=== PATIENT | male | born 1955 | race Caucasian/White ===

== ENCOUNTER 2019-06-01 12:36 | Inpatient (IN) | payer OTHER ==
[~2019-06-01] VITALS: Ht 177.8 cm; Wt 87.5 kg
[~2019-06-01 12:36] MED LIST: AMLO5 PO; CENTRUM MEN'S1 EACH PO; CIPR500 PO; DOXY100 PO; GEMF600 PO; HYDACE10B PO; HYDR-86; IBUP600 PO; LORA10 PO; OXYACE5T PO; SILSUL1TC TOP
[2019-06-01] MEDS ORDERED: POTA10T PO (12:43)
[2019-06-01] MEDS ORDERED: LISI20 PO (12:43)
[2019-06-01] MEDS ORDERED: FUROSEMIDE20 MG PO (12:43)
[2019-06-01] MEDS ORDERED: METO50ER PO (12:44)
[2019-06-01 13:20] LABS: BASOPHILS ABSOLUTE AUTO 0.04 K/mm3 (0.00-0.23); BASOPHILS PERCENT AUTO 0 % (0-2); EOSINOPHILS ABSOLUTE AUTO 0.05 K/mm3 (0.00-0.68); EOSINOPHILS PERCENT AUTO 1 % (0-6); Hematocrit 47.3 % (37.0-53.0); Hemoglobin 16.5 g/dL (13.5-17.5); IMMATURE GRAN ABSOLUTE AUTO 0.02 K/mm3 (0.00-0.10); IMMATURE GRAN PERCENT AUTO 0 % (0-1); LYMPHOCYTES ABSOLUTE AUTO 1.47 K/mm3 (0.84-5.20); LYMPHOCYTES PERCENT AUTO 16 % (21-46); MONOCYTES PERCENT AUTO 6 % (4-13); Mean Corpuscular HGB 30.1 pg (26.0-34.0); Mean Corpuscular HGB Conc 34.9 g/dL (31.5-36.5); Mean Corpuscular Volume 86 fL (80-100); Mean Platelet Volume 10.8 fL (9.1-12.4); NEUTROPHILS ABSOLUTE AUTO 7.19 K/mm3 (1.96-9.15); NEUTROPHILS PERCENT AUTO 77 % (41-73); Platelet Count 254 K/mm3 (150-400); RDW Standard Deviation 40.3 fL (35.1-46.3); Red Blood Cell Count 5.48 M/mm3 (4.30-5.90); White Blood Cell Count 9.37 K/mm3 (4.00-11.30)
[2019-06-01 13:31] LABS: Alanine Aminotransfer (ALT/SGP 23 U/L (12-78); Albumin/Globulin Ratio 1.2 (0.8-1.8); Alk Phos 60 U/L (50-136); Anion Gap 7 mmol/L (6-16); Aspartate Aminotrans (AST/SGOT 14 U/L (12-37); Bilirubin, Total 0.7 mg/dL (0.1-1.0); Blood Urea Nitrogen 10 mg/dL (8-24); Bun/Creatinine Ratio 10.7 (12.0-20.0); CO2, Blood 31 mmol/L (21-32); Calcium, Blood 8.7 mg/dL (8.5-10.1); Chloride, Blood 106 mmol/L (98-108); Creatinine, Blood 0.93 mg/dL (0.60-1.20); Globulin, Blood 3.2 g/dL (2.2-4.0); Glomerular Filtration Rate >60 (60-); Glucose, Blood 118 mg/dL (70-99); Potassium, Blood 2.9 mmol/L (3.5-5.5); Sodium, Blood 144 mmol/L (136-145); Total Protein, Blood 7.2 g/dL (6.4-8.2)
--- NOTE | 2019-06-01 21:40 | NUR ---
TRANSFER RECEIVED FROM ROOM 359 VIA BED. PT IS AWAKE AND ALERT, BUT IS AGITATED AND ORIENTED TO SELF ONLY. MOVING ALL EXTREMITIES AND IS RESTLESS. DOESN'T FOLLOW COMMANDS. MAKES EYE CONTACT WITH STAFF AND FAMILY. FORTINO, 4MM. BILATERAL SOFT WRIST RESTRAINTS AND TEOFILO VEST IN PLACE. EXPRESSIVE APHASIA/WORD SALAD NOTED AT TIMES. CURSING AT STAFF. UNABLE TO OBTAIN BP D/T PT CONSTANTLY MOVING ARMS AND LEGS. MONITOR SHOWS NSR WITH OCCASIONAL PVCs, RATE 70s. AFEBRILE. RA SATS 96%. RESPIRATIONS EVEN AND UNLABORED AT THIS TIME. PT CLUTCHING HEAD WITH BOTH HANDS WHEN RESTRAINTS OFF. ANSWERS "YES" WHEN ASKED IF HE IS HURTING. C/O NAUSEA. FAMILY AT BEDSIDE.
--- NOTE | 2019-06-01 22:20 | NUR ---
AGITATION/HYPERTENSIVE PT CONTINUES WITH INCREASED AGITATION AND RESTLESSNESS. CONSTANTLY MOVING SELF IN BED. BP 208/97. MEDICATED WITH ATIVAN 1MG IV FOR AGITATION AND HYDRALAZINE 10MG IV FOR HYPERTENSION AT THIS TIME.
--- NOTE | 2019-06-01 22:40 | NUR ---
CALL TO MD DR. GASTELUM CALLED FOR UPDATE AND FOR PAIN MEDICATION NEEDS. PT CONTINUES TO C/O SEVERE HEADACHE AND CONTINUES TO BE HYPERTENSIVE AND AGITATED. NEW ORDERS RECEIVED AT THIS TIME.
[2019-06-01 23:11] LABS: Source, Urine Catheter
[2019-06-01 23:14] LABS: Bilirubin, Urine Neg (Neg); Blood, Urine Neg (Neg); Glucose Qualitative, Urine Neg (Neg); Ketones, Urine 3+ (Neg); Leukocyte Esterase, Urine Neg (Neg); Nitrite, Urine Neg (Neg); Protein, Urine 2+ (Neg); Urobilinogen, Urine NORM (Normal)
[2019-06-01 23:21] LABS: Appearance, Urine Hazy (Clear); Color, Urine Yellow (P-Yellow)
[2019-06-01 23:22] LABS: Amorphous Mod (0-Heavy); Bacteria Not Seen /hpf; Mucus Light (0-Heavy); Red Blood Cells, Urine Not Seen /hpf (0-2); Squamous Epithelial Cells Rare /hpf (Few); White Blood Cells, Urine Not Seen /hpf (0-5)
--- NOTE | 2019-06-02 00:05 | NUR ---
AGITATION/CALL TO MD DR. GASTELUM NOTIFIED OF CONTINUED AGITATION AND HYPERTENSION DESPITE ADMINISTRATION OF ORDERED MEDS. PT CONTINUES TO THRASH AROUND IN BED AND PULL ON RESTRAINTS. CURSING AT STAFF AND YELLING OUT FREQUENTLY. NEW ORDERS RECEIVED FOR HALDOL.
--- NOTE | 2019-06-02 00:20 | NUR ---
PT ARRIVED FROM ER TO RM 359 IN WHEELCHAIR. PT HAD VOMITED ON HIMSELF. PT WAS TRANSFERED TO BED AND CHANGED INTO GOWN. PT WAS CONFUSED AND NOT FOLLOWING DIRECTIONS. PT TRIED TO GET OUT OF BED REPEATEDLY. PT WAS NOTED TO BE UNSTEADY DURING TRANSFER TO BED. PT TRIED TO PULL OUT IV AND WAS PLACED IN SOFT WRIST RESTRAINTS. A TEOFILO VEST WAS APPLIED TO KEEP PT IN BED. PT AND SON WERE PRESENT IN ROOM. STATED PT HAS NEVER HAD ISSUE WITH BEING CONFUSED. STATES PT IS NORMALY CAOX4. STATES THAT IN THE PAST PT HAD NEGITIVE RESPONSE TO CONTRAST DYES. WAS UNABLE TO EXPLAIN TYPE OF RESPONSE. DR. WAKEFIELD CALLED AND TRANSFER ORDER WAS MADE FOR PT TO GO TO ICU.
--- NOTE | 2019-06-02 00:25 | NUR ---
AGITATION/RESTRAINTS PT IS THRASHING SIDE TO SIDE IN BED, BANGING LEGS AGAINST BEDRAIL, AND KICKING THEM UP IN THE AIR. MEDICATED WITH ATIVAN 1MG IV. BILATERAL LEG RESTRAINTS ADDED AT THIS TIME. PT STATES HE NEEDS TO "GO TO THE BATHROOM." ATTEMPTED TO ASSIST PT WITH URINAL, BUT PT IS UNABLE TO UNDERSTAND PROCESS. CONTINUES TO CRY OUT THAT HE NEEDS TO URINATE. CLARK CATHETER PLACED AT THIS TIME WITH IMMEDIATE RETURN OF APPROXIMATELY 400CC HAZY YELLOW URINE.
--- NOTE | 2019-06-02 00:46 | NUR ---
AGITATION/CALL TO MD DR. GASTELUM NOTIFIED AT 0035 OF CONTINUED AND INCREASING AGITATION DESPITE PREVIOUS MEDICATIONS. NEW ORDER RECEIVED FOR PRECEDEX. PRECEDEX STARTED @ 0.7MCG/KG/HR AT THIS TIME.
--- NOTE | 2019-06-02 01:30 | NUR ---
CPAP PT SEDATED WITH PRECEDEX @ 0.7MCG/KG/HR. PERIODS OF SLEEP APNEA NOTED (PT HAS HISTORY OF TAYE AND WEARS CPAP AT HOME). CPAP ON AT THIS TIME.
--- NOTE | 2019-06-02 03:45 | NUR ---
PRECEDEX OFF MONITOR SHOWS BRADYCARDIA, RATE 50s. SBP 100s. PRECEDEX OFF AT THIS TIME. PT IS SLEEPING. REMAINS IN BILATERAL SOFT RESTRAINTS X 4 EXTREMITIES AND TEOFILO VEST.
[2019-06-02 03:54] LABS: Anion Gap 5 mmol/L (6-16); Blood Urea Nitrogen 10 mg/dL (8-24); Bun/Creatinine Ratio 9.8 (12.0-20.0); CO2, Blood 33 mmol/L (21-32); Calcium, Blood 8.2 mg/dL (8.5-10.1); Chloride, Blood 107 mmol/L (98-108); Creatinine, Blood 1.02 mg/dL (0.60-1.20); Glomerular Filtration Rate >60 (60-); Glucose, Blood 140 mg/dL (70-99); Potassium, Blood 3.1 mmol/L (3.5-5.5); Sodium, Blood 145 mmol/L (136-145)
--- NOTE | 2019-06-02 05:40 | NUR ---
AGITATION PT WITH SEVERE AGITATION. ATTEMPTING TO SIT UP AND PULLING AGAINST RESTRAINTS. THRASHING VIOLENTLY IN BED. C/O HEADACHE. MEDICATED WITH MS 2MG IV. PRECEDEX RESTARTED @ 0.7MCG/KG/HR AT THIS TIME.
--- NOTE | 2019-06-02 05:53 | NUR ---
AGITATION PT WITH CONTINUED SEVERE AGITATION. REQUIRING TWO RNs TO KEEP PT FROM HURTING SELF BY THRASHING. RESTRAINTS CONTINUE. PRECEDEX INCREASED TO 1MCG/KG/HR AND MEDICATED WITH ATIVAN 1MG IV AT THIS TIME.
--- NOTE | 2019-06-02 06:00 | NUR ---
SEVERE AGITATION PT NOW REQUIRING THREE RNs TO PREVENT HIM FROM HURTING HIMSELF BY FLAILING/THRASHING IN THE BED. TATs PLACED TO ALL FOUR EXTREMITES AT THIS TIME. NOT FOLLOWING ANY COMMANDS. CURSING AND CRYING. PRECEDEX CONTINUES @ 1MCG/KG/HR.
--- NOTE | 2019-06-02 06:10 | NUR ---
PRECEDEX PT WITH DECREASE IN AGITATION AT THIS TIME. CONTINUES WITH SHORT PERIODS OF AGITATION, BUT APPEARS TO CALM EASIER. TUFF CUFFS REMAIN ON. PRECEDEX NOW @ 0.5MCG/KG/HR. WILL REPORT TO DAY SHIFT RN WHEN AVAILABLE.
[2019-06-02 06:30] LABS: U Amphetamine Screen Not Detected; U Barbituate Screen Not Detected; U Benzodiazapine Screen DETECTED; U Buprenorphine Screen Not Detected; U Cannabinoids Screen Not Detected; U Cocaine Screen Not Detected; U Methadone Screen Not Detected; U Methamphetamine Screen Not Detected; U Opiates Screen Not Detected; U Oxycodone Screen Not Detected; U Phencyclidine Screen Not Detected; U Propoxyphene Screen Not Detected
--- NOTE | 2019-06-02 07:20 | NUR ---
ASSUMED CARE OF PATIENT; SEE ASSESSMENT CHARTING FOR DETAILS. PATIENT AGITATED AND RESTLESS; FLAILING EXTREMITITES AND RAISING HEAD OFF OF BED; GRUNTING BUT NO ACTUAL WORDS SPOKEN; EYES CLOSED. DOES NOT RESPOND TO VERBAL STIMULI; DOES RESPOND TO PAIN. EYES OPEN SLIGHTLY; PUPILS 2MM AND EQUAL/REACTIVE; NO DRIFT ETC NOTED BUT DOES NOT APPEAR TO FOCUS, ETC. WILL NOT CHIPPER OPERATOR HANDS, ETC BUT DOES MOVE ALL EXTREM. AND TRIES TO PULL OUT OF RESTRAINTS. ON LOCKED 4 POINT RESTRAINTS D/T PATIENT VERY STRONG AND WAS RIPPING OFF SOFT RESTRAINTS; ALSO ON TEOFILO WAIST/CHEST RESTRAINT D/T TRYING TO RAISE UP OOB. MONITOR WITH SB TO NSR WITH OCC. ECTOPIC. PRECEDEX DRIP UP TO 0.7MCG/KG/HR FROM 0.5MCG/KG/HR; HR IN 60'S. LUNGS CLEAR. OXYGENATION LOW 90'S WHEN RESTLESS AND DROPS DOWN TO MID 80'S TO LOW 90'S WHEN FALLS ASLEEP. CPAP MACHINE PLACED/ HAS BLEED-IN OXYGEN. CLARK CATH. TO GRAVITY; INSERTED BY NIGHTSHIFT D/T PATIENT HAVING SEVERE DIFF. VOIDING.
--- NOTE | 2019-06-02 08:51 | NUR ---
DR. GASTELUM CAME IN TO EVAL. PATIENT; SPOKE WITH SPOUSE. PLANS TO REPEAT CT OF HEAD AND PUT IN NEUROLOGY CONSULT FOR DR. SANON. IVF'S TO BE STARTED AND K+ RIDER TO BE ORDERED. ALSO, TO START IV MEDS. FOR HTN D/T PATIENT UNSAFE OR ALERT ENOUGH TO TAKE PO MEDS.
--- NOTE | 2019-06-02 09:15 | NUR ---
PRECEDEX DRIP REDUCED TO 0.5MCG/KG/HR; HR LOW 50'S.
--- NOTE | 2019-06-02 10:00 | NUR ---
PRECEDEX DRIP REDUCED TO 0.4MCG/KG/MIN; HR 53-56/MIN; PATIENT SLEEPING; TURNED ON R SIDE; CPAP MACHINE IN PLACE. PATIENTS' SPOUSE AND SON AT BEDSIDE.
--- NOTE | 2019-06-02 10:30 | NUR ---
RN T/C TO DR. SANON TO INFORM HIM THAT UTILIZATION REVIEW STATES PATIENT IS QUALIFIED FOR INPATIENT STATUS. DR. SANON TO CONSULT THIS AFTERNOON BETWEEN 3 TO 4PM; WILL CALL RN 30/MIN PRIOR TO ARRIVAL SO RN CAN TURN OFF SEDATIVE MEDS. RN INFORMED PATIENTS' FAMILY RE: NEUROLOGY CONSULT/VISIT.
--- NOTE | 2019-06-02 13:40 | NUR ---
T/C FROM DR. SANON; D/T POWER OUTAGE HE WILL ARRIVE SOONER TO EVAL. PATIENT; REQUESTED RN TURN OFF SEDATION AT THIS TIME AND HE WILL ARRIVE IN ABOUT 10/MIN.
--- NOTE | 2019-06-02 16:15 | NUR ---
DR. SANON ARRIVED; REQUESTS RN D/C LOCKED EXTREM. RESTRAINTS; PATIENT MORE ALERT AND CALMS MUCH EASIER. LUNGS REMAIN CLEAR. OXYGEN AT 2L/MIN VIA NC; CPAP OFF SINCE LATE AM. PRECEDEX DRIP REMAINS OFF AND PATIENT HAS BEEN SLEEPING, QUIET OR CALMED BY FAMILY; REMAINS PARTIALLY CONFUSED AND SHORT-TERM MEMORY OFF.
--- NOTE | 2019-06-02 18:00 | NUR ---
SUMMARY: TEOFILO WAIST RESTRAINT IN PLACE; PATIENT DRIFTS OFF TO SLEEP WHEN NOT DISTURBED. SBP 207; GIVEN APRESOLINE IV AND NORCO 1 TAB TO HELP LOWER BP (AM MEDS HELD TODAY D/T PATIENT TOO STUPEROUS/CONFUSED TO SWALLOW SAFELY). SPOUSE FED PATIENT DINNER AND PATIENT SWALLOWING WELL. ABLE TO SWALLOW NORCO TAB WITHOUT NEED OF APPLESAUCE, ETC; SWALLOWED WITH WATER TO FOLLOW; NO COUGHING, CHOKING, ETC NOTED. PRECEDEX DRIP REMAINS OFF; NS INFUSING AT 100/HR. WILL REPORT TO ONCOMING RN.
--- NOTE | 2019-06-02 20:24 | NUR ---
ASSUMED CARE OF PT, REPORT RCV'D FROM SUKHWINDER REGALADO. PT ALERT TO SELF BUT FAILS TO VERBALLY RESPOND TO QUESTIONS. PT RESPONDS TO PAIN BY WITHDRAWING AND SAYING "OW". PRECEDEX GTT ON STANDBY. NS @100 ML/HR PLACED ON STANDBY BOTH IV'S ARE INFILTRATED DUE TO PT THRASHING. PT REPOSITIONED ONTO LEFT SIDE PER FAMILY REQUEST. TEOFILO VEST ON AND SECURE. CLARK PATENT AND DRAINING. 2L NC WITH SATS IN THE MID 90'S. LUNG SOUNDS CLEAR. SBP 220/109, TREATED WITH HYDRALAZINE AND PO METOPROLOL. PT ABLE TO SWALLOW PO MEDS WITH NO DIFFICULTY. SEE FULL SHIFT ASSESSMENT.
--- NOTE | 2019-06-02 22:00 | NUR ---
PT ANTSY AND THRASHING IN BED, PULLING LEADS OFF AND CORDS. PT UNABLE TO ANSWER MOST QUESTIONS BUT WILL OCCASIONALLY YELL OUT "OW" AND "I NEED OUT". PT UNABLE TO EXPRESS WHERE HE IS HAVING PAIN. PRECEDEX 0.05 MCG/KG/HR STARTED. PT'S FAMILY AT BEDSIDE AND UPDATED.
[2019-06-03 04:00] LABS: Anion Gap 3 mmol/L (6-16); Blood Urea Nitrogen 15 mg/dL (8-24); Bun/Creatinine Ratio 15.7 (12.0-20.0); CHOL/HDL RATIO 4.1; CO2, Blood 31 mmol/L (21-32); Chloride, Blood 110 mmol/L (98-108); Cholesterol 131 mg/dL (50-200); Creatinine, Blood 0.95 mg/dL (0.60-1.20); Glomerular Filtration Rate >60 (60-); Glucose, Blood 114 mg/dL (70-99); HDL Cholesterol 32 mg/dL (>39); LDL/HDL RATIO 2.4; Low Density Lipoprotein Chol 76 mg/dL (0-110); Potassium, Blood 3.2 mmol/L (3.5-5.5); Sodium, Blood 144 mmol/L (136-145); Triglycerides 113 mg/dL (30-160); Very Low Density Lipoprot Chol 22 mg/dL (6-32)
--- NOTE | 2019-06-03 06:12 | NUR ---
SHIFT SUMMARY PT CONTINUES TO BE CONFUSED AND PULLING AT LINES, CLARK, CARDIAC LEADS, AND TAKING HIS CPAP OFF. PT SEEMED MORE CONFUSED AND RESTLESS FOLLOWING DOSE OF ATIVAN. PT HAD ONE MOMENT OF "CLARITY" WHERE HE SEEMED LESS CONFUSED AND WAS ABLE TO FOLLOW DIRECTION WHILE ASSISTING WITH LINEN CHANGE. PT STARTED ON PRECEDEX GTT AT 2300 AND PT BECAME LESS ANXIOUS AND RESTLESS. SBP BELOW 160 SINCE 2200. PRECEDEX GTT PLACED ON STANDBY AT 0530 D/T BRADYCARDIA WITH HR IN THE LOW 40'S. 600 ML DARK YELLOW URINARY OUTPUT. TMAX 99.0. WILL REPORT TO DAYSHIFT NURSE.
--- NOTE | 2019-06-03 08:37 | NUR ---
PT ALERT AND ORIENTED THIS MORNING UPON WAKING. HE IS STILL A LITTLE SLOW TO RESPOND WHEN ASKED MORE COMPLICATED QUESTIONS, BUT STILL ANSWERS APPROPRIATELY. HE REMEMBERS EVENTS LEADING UP TO HIS STAY AND PARTS OF THE STAY, BUT DOESN'T REMEMBER HIS CONFUSION. HE TOOK PILLS WITHOUT DIFFICULTY, ATE BREAKFAST HIMSELF. CLARK REMOVED WITHOUT DIFFICULTY. CONTINUING TO MONITOR.
--- NOTE | 2019-06-03 15:58 | NUR ---
SHIFT SUMMARY: PT HAS BEEN ALERT AND ORIENTED THROUGHOUT THE SHIFT. IN THE MORNING HIS THINKING WAS STILL SLOW WITH COMPLICATED QUESTIONS, BUT THIS EVENING HE IS ANSWERING QUICKLY AND APPROPRIATELY TO ALL QUESTIONS. LUNGS REMAINS CLEAR, RA. HEART RATE REMAINS REGULAR, BP STILL ELEVATED IN THE 160-170S, HYDRALAZINE GIVEN. PT COMPLAINS OF ONGOING HEADACHES, PAIN MEDICATION GIVEN THROUGHOUT THE DAY. VOIDING WITHOUT DIFFICULTY. PT HAS BEEN UP TO CHAIR. STATES HE FEELS STEADY ON HIS FEET. NO OTHER COMPLAINTS AT THIS TIME.
--- NOTE | 2019-06-03 17:40 | NUR ---
PT TRANSFERRED TOR 309. REPORT GIVEN TO SUKHWINDER MARINELLI. PT TRANSPORTED VIA TO NEW ROOM. PT'S WITH PT AT TIME OF TRANSPORT.
--- NOTE | 2019-06-03 18:35 | NUR ---
SHIFT SUMMARY PATIENT ARRIVED TO THE UNIT AT 1800. HE IS CURRENTLY ON A RETAIL GREETER AND HAS BEEN HYPERTENSIVE. HE HAS BEEN GIVEN A DOSE OF IV METOPROLOL AND A DOSE OF TYLENOL TO RELIEVE THE HEADACHE.
--- NOTE | 2019-06-04 08:30 | NUR ---
PT PLEASANT COOP A/O. STATES PAIN IN HEADACHE ONLY. IN ROOM. TRIES TO TALK FOR HIM. H/R REG NO MURMER NOTED. BP 185/85 RECHECK AT 197/91. PER TELE: NSR TO ASHU 56-60'S. MED PER EMAR. LUNGS CLEAR, RESP EASY, UNLABORED. ON R/A. BT X4 LAST BM 3 DAYS, BUT NOT EATING HARDLY ANYTHING AND STATES THROWING UP. VOIDS PER BATHROOM. INDEPENDNT IN ROON. BED IN LOW POSITION, CALL LITE IN REACH, CALLS APPROP. DR IN ROOM. DISCUSSED KEEP TELE. D/C NEUROCHECKS. AND HEADACHE.
[2019-06-04 09:54] LABS: Anion Gap 4 mmol/L (6-16); Blood Urea Nitrogen 11 mg/dL (8-24); Bun/Creatinine Ratio 13.3 (12.0-20.0); CO2, Blood 31 mmol/L (21-32); Calcium, Blood 8.5 mg/dL (8.5-10.1); Chloride, Blood 108 mmol/L (98-108); Creatinine, Blood 0.83 mg/dL (0.60-1.20); Glomerular Filtration Rate >60 (60-); Glucose, Blood 118 mg/dL (70-99); Potassium, Blood 3.3 mmol/L (3.5-5.5); Sodium, Blood 143 mmol/L (136-145)
--- NOTE | 2019-06-04 11:42 | NUR ---
0900BP HIGH. ADMIN MEDS. FOLLOW WITH RECHECK AFTER MEDS. 1000 DR ADDED NEW MEDS FOR BP. 1100 RECHECK SHOWS 197/91 P 54
--- NOTE | 2019-06-04 11:43 | NUR ---
[facility]. NEURO CHECKS D/C
--- NOTE | 2019-06-04 14:25 | NUR ---
PT STATES HEADACHE FINALLY GONE.
--- NOTE | 2019-06-04 14:47 | NUR ---
PT WITH GOING OUT TO SIT IN SUN FOR A FEW MIN. PT HAPPY TO GO.
--- NOTE | 2019-06-04 17:06 | NUR ---
PT PLEASANT TODAY. AND SON IN TO VISIT TODAY. HEADACHE IMPROVED SINCE NEW MED. BP ALSO DOWN THIS AFT. DR ADVISED IN [place] AND COMFORTABLE IN MID 160'S. PT RESTING IN BED AT THIS TIME. WATCHING TV. BED IN LOW POSITION CALL ANSHU ALEGRE, CALLS APPROP
--- NOTE | 2019-06-04 17:06 | NUR ---
PT ABLE TO GO OUTSIDE WITH FAMILY. STATES DID WELL. FEELS NICE TO GET OUT AGAIN.
--- NOTE | 2019-06-05 06:24 | NUR ---
SHIFT SUMMARY PT IS A 64 Y/O MALE, ADMITTED FOR HYPERTENSIVE URGENCY. HE IS A&O X 3, AND INDEPENDENT IN THE ROOM. HIS BP WAS ELEVATED DURING THE NIGHT IN THE 180-190S SYSTOLICALLY, BUT BOTH TIMES CAME DOWN TO 150-160S ON RECHECK WITHOUT PRN MEDICATION INTERVENTION. ALL OTHER VITALS STABLE. HE WAS MEDICATED ONCE WITH PRN FIORINAL FOR A HEADACHE. NO OTHER COMPLAINTS OF PAIN, NAUSEA OR SOB. PT SLEPT OFF AND ON DURING THE NIGHT. NO OTHER ACUTE CHANGES IN PT CONDITION NOTED. WILL CONTINUE TO MONITOR AND TREAT PER EMAR UNTIL HAND OFF TO DAY SHIFT.
[2019-06-05] MEDS ORDERED: AMLO10 PO (17:02)
[2019-06-05] MEDS ORDERED: ATOR20 PO (17:04)
[2019-06-05] MEDS ORDERED: ASPI81CH PO (17:04)
[2019-06-05] MEDS ORDERED: CLON.1 PO (17:05)
[2019-06-05] MEDS ORDERED: POTCHL20ER PO (17:07)
--- NOTE | 2019-06-05 17:45 | NUR ---
REVIEW D'C WITH PATIENT AND SPOUSE. AWARE TO ANTHROPOLOGY FACULTY MEMBER RX AT [facility]. ANSWER ALL QUESTIONS. AWARE TO CALL FOR APPT. AWARE CAN RETURN TO E.R. IF ANY PROBLEMS. EATTING DINNER THEN WILL HAVE W/C RIDE DOWN TO CAR.
== END 2019-06-05 17:59 | disposition home or self-care (01) | DRG 78 ==
LOC: ER 12:36 → ERHOLD 17:12 → MEDS 17:12 → ICUE 17:12 → MEDS 19:46 → ICUE 21:26 → MEDS 06-03 17:31
PROVIDERS: Emergency Medicine; Family Medicine; ADMIT Hospitalist
DX: I67.4 Hypertensive encephalopathy (principal); G45.9 Transient cerebral ischemic attack, unspecified; I16.0 Hypertensive urgency; E78.00 Pure hypercholesterolemia, unspecified; Z87.891 Personal history of nicotine dependence; G47.33 Obstructive sleep apnea (adult) (pediatric); E78.5 Hyperlipidemia, unspecified; I10 Essential (primary) hypertension; E87.6 Hypokalemia; F41.9 Anxiety disorder, unspecified; R45.1 Restlessness and agitation; E11.9 Type 2 diabetes mellitus without complications; R20.0 Anesthesia of skin; Z79.82 Long term (current) use of aspirin
CPT/HCPCS: 36415; 51703; 70450; 70551; 80048; 80053; 80061; 81001; 82947; 85025; 93005; 93010; 93975; 94660; 94762; 96374; 96375; 96376; 99285-25; A9270; A9270-GY; G0378; J0360; J1630; J2060; J2270; J2405; J3480; J7030

== ENCOUNTER → 2019-06-08 | Outpatient (CLI) | payer OTHER ==
[~2019-06-08] MED LIST changes: +AMLO10 PO; +ASPI81CH PO; +ATOR20 PO; +CLON.1 PO; +FUROSEMIDE20 MG PO; +LISI20 PO; +METO50ER PO; +POTA10T PO; +POTCHL20ER PO
[2019-06-12 18:06] LABS: DOPAMINE, URINE 78 ug/L (Undefined)
[2019-06-12 22:06] LABS: METANEPHRINE, UR 39 ug/L (Undefined)
[2019-06-14 04:07] LABS: CREATININE, URINE 48.3 mg/dL (Not Estab.)
== END | disposition home or self-care (01) ==
LOC: LAB SHORT 05:36 → LAB 05:36 → LAB FUT 06-06 13:30
PROVIDERS: Hospitalist
DX: I16.0 Hypertensive urgency (principal)
CPT/HCPCS: 81050; 82384; 82570; 83835; 84585

== ENCOUNTER 2021-02-27 16:40 | Day surgery (SDC) | payer OTHER, MEDICARE | END 2021-02-27 22:40 | disposition home or self-care (01) | LOC: US 16:40 | DX: J90 Pleural effusion, not elsewhere classified (principal) | CPT/HCPCS: 32555; 71045 ==

== ENCOUNTER 2021-05-06 13:34 | Inpatient (IN) | payer OTHER, MEDICARE ==
[~2021-05-06] VITALS: Ht 177.8 cm; Wt 82.5 kg
[~2021-05-06 13:34] MED LIST changes: +ACET325 PO; -ATOR20 PO; +ATOR80 PO; +AZIT250 PO; +BENZONATATE100 MG PO; +DILT60 PO; +HYDROCHLOROTHIA25 MG PO; +Mucinex600 MG PO; +Norco 7.5-3251 EACH PO; +ONDA4ODT MM; +PANT20 PO; +SPIRONOLACTONE50 MG PO; +VISBIOME 112.51 EACH PO; +XARELTO15 M1 PO
[2021-05-06 14:21] LABS: Hematocrit 20.5 % (37.0-53.0); Hemoglobin 6.4 g/dL (13.5-17.5); Mean Corpuscular HGB 27.9 pg (26.0-34.0); Mean Corpuscular HGB Conc 31.2 g/dL (31.5-36.5); Mean Corpuscular Volume 90 fL (80-100); Mean Platelet Volume 10.2 fL (9.1-12.4); Platelet Count 353 K/mm3 (150-400); RDW Coefficient Variation 18.9 % (11.7-14.2); RDW Standard Deviation 59.9 fL (35.1-46.3); Red Blood Cell Count 2.29 M/mm3 (4.30-5.90)
[2021-05-06 14:36] LABS: Alanine Aminotransfer (ALT/SGP 41 U/L (12-78); Albumin, Blood 2.6 g/dL (3.4-5.0); Albumin/Globulin Ratio 0.6 (0.8-1.8); Alk Phos 166 U/L (50-136); Anion Gap 5 mmol/L (6-16); Aspartate Aminotrans (AST/SGOT 12 U/L (12-37); Bilirubin, Total 0.2 mg/dL (0.1-1.0); Blood Urea Nitrogen 13 mg/dL (8-24); Bun/Creatinine Ratio 15.6 (12.0-20.0); CO2, Blood 28 mmol/L (21-32); Calcium, Blood 8.2 mg/dL (8.5-10.1); Chloride, Blood 105 mmol/L (98-108); Creatinine, Blood 0.83 mg/dL (0.60-1.20); Globulin, Blood 4.3 g/dL (2.2-4.0); Glomerular Filtration Rate >60 (60-); Glucose, Blood 125 mg/dL (70-99); Potassium, Blood 3.5 mmol/L (3.5-5.5); Sodium, Blood 138 mmol/L (136-145); Total Protein, Blood 6.9 g/dL (6.4-8.2)
[2021-05-06 14:45] LABS: BAND PERCENT MAN 21 % (0-8); BASOPHILS ABSOLUTE MAN 0.19 K/mm3 (0.00-0.23); BASOPHILS PERCENT MAN 1 % (0-2); EOSINOPHILS PERCENT MAN 0 % (0-6); LYMPHOCYTES ABSOLUTE MAN 2.17 K/mm3 (0.84-5.20); LYMPHOCYTES PERCENT MAN 11 % (21-46); METAMYELOCYTE ABSOLUTE MAN 0.99 K/mm3 (0.00-0.00); METAMYELOCYTE PERCENT MAN 5 % (0-0); MONOCYTES PERCENT MAN 0 % (4-13); NEUTROPHILS ABSOLUTE MAN 16.43 K/mm3 (1.96-9.15); SEG NEUTROPHILS PERCENT MAN 62 % (41-73); TOTAL CELLS COUNTED 100
[2021-05-06] MEDS ORDERED: LISI5 PO (16:22)
[2021-05-06] MEDS ORDERED: DILT60 PO (16:22)
[2021-05-06] MEDS ORDERED: XARELTO20 M1 PO (16:22)
[2021-05-06] MEDS ORDERED: AMLODIPINE BESY10 MG PO (16:23)
[2021-05-06] MEDS ORDERED: METO50ER PO (16:24)
[2021-05-06] MEDS ORDERED: CLON.1 PO (16:24)
--- NOTE | 2021-05-06 18:59 | NUR ---
PT TO ICU 5 FROM ED. PT ARRIVES TACHYPNEIC AND DIAPHORETIC WITH WET/COARSE BREATH SOUNDS T/O. PT ANXIOUS AND SATS IN THE MID 80'S ON 9L HFNC. RESPIRATORY THERAPY ARRIVES AT BEDSIDE AND ADMITTING DOCTOR CALLED. STAT CHEST XRAY ORDERED AND PT PLACED ON OXYMIZER, 40L 52%. OXYGENATION NEEDS INCREASE WITH AMBULATION. PT ANXIOUS REGARDING OXYMIZER AND FEELS LIKE HE IS UNABLE TO BREATH. PT GIVEN BEDSIDE FAN AND REASSURED THAT SATS ARE IN MID 90'S ON OXYMIZER. RT NOTIFIED REGARDING PT'S DISCOMFORT. PT'S AT BEDSIDE ENCOURAGING PT. PT HAS EMESIS BAG WITH BRIGHT RED BLOOD HE COUGHS UP. PER PT AND , PT BEGAN COUGHING UP BLOOD LAST NIGHT. PLEURX DRAIN PLACED BY DR. GARY 02/2021 TO RIGHT FLANK. PER PT, PT HAD HOME HEALTH UNTIL THE END OF MARCH AND SINCE THEN PT HAS "DRAINED IT HIMSELF EVERYOTHER DAY". PT REPORTS THAT HE WAS UNABLE TO "DRAIN ANYTHING TODAY". PT SIT WITH HR IN THE 120'S, HR INCREASES WITH AMBULATION. PT HAS FIRST UNIT PRBC INFUSING INTO LEFT HAND WITH ORDER TO INFUSE 2 UNITS PRBC TOTAL. PT STATES HE HAS BEEN HAVING TROUBLE "SWALLOWING PILLS", IV PAIN MEDICATION AND ANXIETY MEDICATIONS ORDER. DR. GUERRERO AND DR. DAO AT BEDSIDE DISCUSSING HOSPICE/COMFORT CARE OPTIONS. PT REMAINS FULL CODE AT THIS TIME.
--- NOTE | 2021-05-06 21:25 | NUR ---
PATIENT IN BED WITH HOB HIGH. PATIENT VERBALIZED FEELING RESTLESS, ATIVAN GIVEN, PATIENT MOVING AROUND IN BED MORE, BUT VERBALIZED HE IS FEELING LESS ANXIOUS. PATIENT GIVEN FENTANYL FOR C/O CORTES AND LOW LEFT ABD PAIN, WITH PAIN RESOLVED. DOCTOR YOLANDA AND DOCTOR COOKIE BOTH IN TO SEE PATIENT, PATIENTS , AND PATIENTS SON. CHANGED TO A LIMITED CODE STATUS WITH INTUBATION OK AND NO CPR. SECOND UNIT OF PRBC INFUSING. LUNG SOUNDS COARSE T/O BIOX 91-93% ON 15L/NC. PATIENT MOIST COUGH WITH BRIGHT RED BLOODY SPUTUM. PLEURX CATHETER DRAIN TO RIGHT LOWER SIDE CLAMPED WITH A SMALL AMT OF YELLOW DRAINAGE IN TUBING.
[2021-05-06 23:15] LABS: BASOPHILS ABSOLUTE AUTO 0.17 K/mm3 (0.00-0.23); BASOPHILS PERCENT AUTO 1 % (0-2); EOSINOPHILS ABSOLUTE AUTO 0.01 K/mm3 (0.00-0.68); EOSINOPHILS PERCENT AUTO 0 % (0-6); Hemoglobin 7.9 g/dL (13.5-17.5); IMMATURE GRAN ABSOLUTE AUTO 1.05 K/mm3 (0.00-0.10); IMMATURE GRAN PERCENT AUTO 4 % (0-1); LYMPHOCYTES ABSOLUTE AUTO 0.85 K/mm3 (0.84-5.20); LYMPHOCYTES PERCENT AUTO 4 % (21-46); MONOCYTES ABSOLUTE AUTO 1.52 K/mm3 (0.16-1.47); MONOCYTES PERCENT AUTO 6 % (4-13); Mean Corpuscular HGB 26.5 pg (26.0-34.0); Mean Corpuscular HGB Conc 31.6 g/dL (31.5-36.5); Mean Corpuscular Volume 84 fL (80-100); NEUTROPHILS ABSOLUTE AUTO 20.12 K/mm3 (1.96-9.15); NEUTROPHILS PERCENT AUTO 85 % (41-73); NRBC ABSOLUTE 0.06 K/mm3 (0.00-0.02); NRBC Auto 0.3 /100 WBC (0.0-0.2); Platelet Count 351 K/mm3 (150-400); RDW Coefficient Variation 19.9 % (11.7-14.2); RDW Standard Deviation 59.6 fL (35.1-46.3); Red Blood Cell Count 2.98 M/mm3 (4.30-5.90); White Blood Cell Count 23.72 K/mm3 (4.00-11.30)
[2021-05-07 04:34] LABS: Hematocrit 24.8 % (37.0-53.0); LYMPHOCYTES ABSOLUTE AUTO 0.86 K/mm3 (0.84-5.20); LYMPHOCYTES PERCENT AUTO 3 % (21-46); MONOCYTES ABSOLUTE AUTO 1.49 K/mm3 (0.16-1.47); MONOCYTES PERCENT AUTO 6 % (4-13); Mean Corpuscular HGB 26.8 pg (26.0-34.0); Mean Corpuscular HGB Conc 32.3 g/dL (31.5-36.5); Mean Corpuscular Volume 83 fL (80-100); NRBC ABSOLUTE 0.04 K/mm3 (0.00-0.02); NRBC Auto 0.2 /100 WBC (0.0-0.2); Platelet Count 324 K/mm3 (150-400); RDW Coefficient Variation 20.4 % (11.7-14.2); RDW Standard Deviation 59.8 fL (35.1-46.3); Red Blood Cell Count 2.98 M/mm3 (4.30-5.90); White Blood Cell Count 26.22 K/mm3 (4.00-11.30)
[2021-05-07 04:35] LABS: BASOPHILS ABSOLUTE AUTO 0.05 K/mm3 (0.00-0.23); BASOPHILS PERCENT AUTO 0 % (0-2); EOSINOPHILS PERCENT AUTO 0 % (0-6); IMMATURE GRAN ABSOLUTE AUTO 0.77 K/mm3 (0.00-0.10); IMMATURE GRAN PERCENT AUTO 3 % (0-1); NEUTROPHILS ABSOLUTE AUTO 23.05 K/mm3 (1.96-9.15); NEUTROPHILS PERCENT AUTO 88 % (41-73)
[2021-05-07 04:50] LABS: Anion Gap 6 mmol/L (6-16); Blood Urea Nitrogen 15 mg/dL (8-24); Bun/Creatinine Ratio 19.1 (12.0-20.0); CO2, Blood 26 mmol/L (21-32); Calcium, Blood 8.1 mg/dL (8.5-10.1); Chloride, Blood 107 mmol/L (98-108); Creatinine, Blood 0.79 mg/dL (0.60-1.20); Glomerular Filtration Rate >60 (60-); Glucose, Blood 185 mg/dL (70-99); Sodium, Blood 139 mmol/L (136-145)
--- NOTE | 2021-05-07 06:04 | NUR ---
SUMMARY PATIENT SLEEPING OFF AND ON T/O NIGHT. PATIENT VERBALIZED THAT HE HAS BEEN HAVING DIFFICULTY SLEEPING THE LAST FEW DAYS TRAZODONE ORDER OBTAINED FROM DOCTOR YOLANDA WITH GOOD RESULTS. PATIENT AWAKENS EASILY VERBALIZED THAT HE IS FEELING MUCH BETTER COARSE RHONCHI CONTINUES, COUGHING UP LESS BLOODY SPUTUM THE NIGHT PROGRESSED. BIOX 94% ON 10L/NC HUMIDIFIED. PATIENT ABLE TO STAND AT SIDE OF BED TO URINATE TWICE DURING THE NIGHT, CONTINUES TO HAVE DYSPNEA WITH SLIGHT EXERTION. PLEURX DRAIN REMANS CLAMPED AND UNCHANGED T/O NIGHT.
--- NOTE | 2021-05-07 08:10 | NUR ---
INITIAL ASSESSMENT PATIENT ALERT AND ORIENTED X 4, AFEBRILE. PATIENT DENIES PAIN. PATIENT WEAK; 1 PERSON ASSIST. PATIENT ABLE TO REPOSITION SELF. PATIENT ON 10 L HF NC TO 14 L HF WHILE EATING BREAKFAST. LUNGS COARSE THROUGHOUT. PATIENT HAS MOIST COUGH PRODUCING SMALL AMOUNTS OF THIN, BLOODY SPUTUM. PATIENT SOB WITH EXERTION. PATIENT DESATS TO 80S WHEN STANDING TO USE URINAL OR WHEN EATING. R LOWER LATERAL PLEURX DRAIN IN PLACE; CLAMPED. SEROUS FLUID NOTED IN DRAIN. PATIENT IN SR, HR 80S TO 90S. SBP 130S TO 150S. GI WNL. WNL. SKIN FRAGILE WITH SCATTERED BRUISES. NS AT 100 MLS/ HOUR. BED LOW, CALL LIGHT IN REACH. WILL CONTINUE TO MONITOR PATIENT FREQUENTLY THROUGHOUT SHIFT.
[2021-05-07 09:55] LABS: Hematocrit 24.7 % (37.0-53.0)
--- NOTE | 2021-05-07 12:05 | NUR ---
PATIENT AFEBRILE. PATIENT IN SR TO ST, HR 90S TO LOW 100S. SBP 140S TO 160S. PATIENT TACHYPNEIC AT TIMES WITH EXERTION AND TALKING. PATIENT SATTING 90% AND GREATER ON 12 L HF NC. NO OTHER ACUTE CHANGES TO NOTE ON AT THIS TIME. WILL CONTINUE TO MONITOR.
--- NOTE | 2021-05-07 16:19 | NUR ---
PATIENT AFEBRILE. LUNGS COARSE AND DIMINISHED THROUGHOUT. PATIENT DECREASED FROM 12 TO 10 L HF NC. HR IN THE LOW 100S. SBP 160S TO 170S. HOME METOPROLOL DOSE STARTED. FAMILY IN ROOM WITH PATIENT. NO OTHER ACUTE CHANGES TO NOTE ON AT THIS TIME. PATIENT HAS NO COMPLAINTS. BED LOW, CALL LIGHT IN REACH. WILL CONTINUE TO MONITOR.
[2021-05-07 16:28] LABS: Hematocrit 24.6 % (37.0-53.0); Hemoglobin 7.7 g/dL (13.5-17.5)
--- NOTE | 2021-05-07 17:30 | NUR ---
Spiritual care note: Mr. Steinberg and I met on previous admission. This morning he was jovial, making little jokes and reported hope. Family at bedside. I offered prayer and he accepted. No fears/concerns presented. Family declined needs. Assured them of excellent care and attention. I will remain available.
--- NOTE | 2021-05-07 19:29 | NUR ---
SHIFT SUMMARY PATIENT REMAINED ALERT AND ORIENTED X 4, AFEBRILE. PATIENT APPEARS IN PLEASANT MOOD. NO COMPLAINTS OF PAIN THIS SHIFT. PATIENT WEAK; 1 PERSON ASSIST AT SIDE OF BED WITH URINAL. LUNGS REMAINED COARSE THROUGHOUT. LUNGS BECAME MORE DIMINISHED SHIFT WENT ON. PATIENT RANGED FROM 10 TO 14 L HF NC WITH HUMIDITY. PATIENT DECREASED TO LOW 80S WHEN GETTING UP FOR URINAL. SOB WITH EXERTION/ TALKING. PLEURX REMAINED CLAMPED. PATIENT DID NOT COUGH UP ANY BLOOD THIS AFTERNOON. PATIENT STATED HE WAS HAVING MORE OF A DRY COUGH. PATIENT REMAINED IN SR/ ST WITH PVCS, HR 80S TO LOW 100S. SBP 130S TO 170S. HOME METOPROLOL ORDERED TO HELP WITH HTN. PRN HYDRALAZINE ALSO ORDERED THIS SHIFT. NO BM THIS SHIFT. PATIENT HAD OK APPETITE. PATIENT VOIDED 550 MLS OF JOHANNA COLORED URINE. NO CHANGE TO SKIN. PATIENT CONTINUED TO FREQUENTLY REPOSITION SELF IN BED. BOTH IVS INFILTRATED THIS SHIFT. PUNCH OUT CREW MEMBER SYSTEM DESIGNER, NOAH KC, PLACING POWERGLIDE AT THIS TIME. HEMOGLOBIN DROPPED FROM 8.0 TO 7.7. ANOTHER HGB TO BE DONE AT 2200. BED LOW, CALL LIGHT IN REACH. REPORT HAS BEEN GIVEN TO ASSUMING PUNCH OUT CREW MEMBER RN.
[2021-05-07 22:15] LABS: Hematocrit 22.1 % (37.0-53.0); Hemoglobin 7.1 g/dL (13.5-17.5)
--- NOTE | 2021-05-08 02:54 | NUR ---
05/08 @ 01:50 PT ATTEMPTED TO CURL SELF UP AT THE FOOT OF THE BED ATTEMPTING TO LIE FLAT TO GO TO SLEEP. IN THIS SCRUNCHED POSITION PT BECAME SHORT OF BREATH, DESATURATED TO LOW OF 67%. CALLED RT AFTER REPOSITIONING, ATTEMPTING GUIDED BREATHING EXERCISES, PLACED AIR-VO. SPO2 NOW UP 98%. NO ISSUES OF RESPIRATORY DISTRESS. WILL CONTINUE TO MONITOR.
[2021-05-08 04:23] LABS: Hematocrit 22.4 % (37.0-53.0); Hemoglobin 7.2 g/dL (13.5-17.5)
--- NOTE | 2021-05-08 05:49 | NUR ---
SHIFT SUMMARY PATIENT HAS NOT SLEPT TONIGHT. AFTER EARLIER EPISODE OF SHORTNESS OF BREATH HAS HAD NO FURTHER COMPLAINTS OF SHORTNESS OF BREATH. VSS. NO C/O PAIN. WILL CONTINUE TO MONITOR.
--- NOTE | 2021-05-08 08:00 | NUR ---
INITIAL ASSESSMENT PATIENT ALERT AND ORIENTED X 4. PATIENT COOPERATIVE AND PLEASANT. AFEBRILE. NO COMPLAINTS OF PAIN. PATIENT SATTING 90% AND GREATER ON NON-HEATED AIRVO AT 30 L AND 55% FIO2. LUNGS DIMINISHED THROUGHOUT. OCCASIONAL, NONPRODUCTIVE COUGH NOTED. SOB WITH EXERTION. PLEURX TO R LOWER LATERAL SIDE REMAINS CLAMPED. SEROUS FLUID NOTED IN LINE. PATIENT IN SR, HR 80S TO 90S. SBP 1-TEENS TO 140S. GI WNL. APPETITE OK. BM THIS AM. PATIENT VOIDING JOHANNA COLORED URINE INTO URINAL WITH 1 PERSON ASSIST. SKIN FRAGILE. SCATTERED BRUISES NOTED. PATIENT SHIFTING OWN HIPS IN BED. NS INFUSING TKO. CALL LIGHT IN REACH. WILL CONTINUE TO MONITOR PATIENT FREQUENTLY THROUGHOUT SHIFT.
--- NOTE | 2021-05-08 09:00 | NUR ---
DR. DAO, DR. BAZAN, AND DR. GUERRERO UPDATED ON PATIENT STATUS. INFORMED THAT HEMOGLOBIN 7.1 AND 7.2 THIS AM. INFORMED THAT PATIENT DID NOT HAVE ANY HEMOPTYSIS OVERNIGHT. NO ORDER RECEIVED.
[2021-05-08 10:23] LABS: Hematocrit 24.2 % (37.0-53.0); Hemoglobin 7.5 g/dL (13.5-17.5)
[2021-05-08 10:51] LABS: Vancomycin, Trough 16.3 ug/mL (5.0-10.0)
--- NOTE | 2021-05-08 11:04 | NUR ---
DECREASED FIO2 FROM 55% TO 50%. PATIENT REMAINS SATTING IN HIGH 90S. WILL CONTINUE TO MONITOR.
--- NOTE | 2021-05-08 11:34 | NUR ---
PATIENT AFEBRILE. PATIENT DENIES PAIN. PATIENT SATTING 90% AND GREATER ON AIRVO 30 L AND 50% FIO2. PATIENT IN SR TO ST, HR 90S TO LOW 100S. SBP IN THE 130S. NO OTHER ACUTE CHANGES TO NOTE ON AT THIS TIME. PATIENT STATES HE IS GOING TO TAKE A NAP NOW.
--- NOTE | 2021-05-08 12:00 | NUR ---
PATIENT AFEBRILE. NO COMPLAINTS OF PAIN. HR 80S TO LOW 100S. SBP 120S TO 130S. AIRVO AT 30 L AND 50% FIO2. NO OTHER ACUTE CHANGES TO NOTE ON AT THIS TIME. WILL CONTINUE TO MONITOR.
--- NOTE | 2021-05-08 16:17 | NUR ---
PATIENT AFEBRILE. PATIENT DID COUGH UP SMALL AMOUNT OF THIN, BLOODY SPUTUM. PRN TESSALON GIVEN. HR 80S TO 90S. SBP 120S. NO OTHER ACUTE CHANGES TO NOTE ON AT THIS TIME. WILL CONTINUE TO MONITOR.
[2021-05-08 17:30] LABS: Hematocrit 24.4 % (37.0-53.0); Hemoglobin 7.6 g/dL (13.5-17.5)
--- NOTE | 2021-05-08 19:27 | NUR ---
SHIFT SUMMARY PATIENT REMAINED ALERT AND ORIENTED X 4, AFEBRILE. PATIENT PLEASANT AND COOPERATIVE. PATIENT ANXIOUS AT TIMES. PRN XANAX GIVEN OT AT END OF THIS SHIFT. LUNGS DIMINISHED THIS SHIFT. AIRVO TITRATED DOWN TO 30 L AND 50% FIO2 THIS SHIFT. PATIENT REMAINS SOB WITH EXERTION. PATIENT COUGHED UP SCANT AMOUNT OF THIN, BLOOD IN LATE AFTERNOON. PATIENT SR TO ST, HR 80S TO LOW 100S. SBP 1-TEENS TO 140S. PATIENT HAD BM THIS SHIFT. ADEQUATE APPETITE. 550 MLS OF JOHANNA COLORED URINE OUT. NO CHANGE TO SKIN. PATIENT SHIFTING OWN HIPS IN BED. NS INFUSING TKO. PATIENT HAD COMPLETE BED BATH THIS SHIFT. IN VISITING PATIENT AT THIS TIME. BED LOW, CALL LIGHT IN REACH. REPORT HAS BEEN GIVEN TO ASSUMING INTEGRATED CIRCUITS INSPECTOR NURSE.
[2021-05-09 04:40] LABS: Hematocrit 21.7 % (37.0-53.0); Hemoglobin 6.8 g/dL (13.5-17.5); Mean Corpuscular HGB 26.8 pg (26.0-34.0); Mean Corpuscular HGB Conc 31.3 g/dL (31.5-36.5); Mean Corpuscular Volume 85 fL (80-100); NRBC ABSOLUTE 0.08 K/mm3 (0.00-0.02); NRBC Auto 0.2 /100 WBC (0.0-0.2); Platelet Count 305 K/mm3 (150-400); RDW Coefficient Variation 20.9 % (11.7-14.2); RDW Standard Deviation 61.5 fL (35.1-46.3); Red Blood Cell Count 2.54 M/mm3 (4.30-5.90); White Blood Cell Count 44.63 K/mm3 (4.00-11.30)
[2021-05-09 05:07] LABS: Anion Gap 7 mmol/L (6-16); Blood Urea Nitrogen 33 mg/dL (8-24); Bun/Creatinine Ratio 32.4 (12.0-20.0); CO2, Blood 26 mmol/L (21-32); Calcium, Blood 8.3 mg/dL (8.5-10.1); Chloride, Blood 111 mmol/L (98-108); Creatinine, Blood 1.02 mg/dL (0.60-1.20); Glomerular Filtration Rate >60 (60-); Glucose, Blood 169 mg/dL (70-99); Potassium, Blood 4.1 mmol/L (3.5-5.5); Sodium, Blood 144 mmol/L (136-145)
[2021-05-09 05:54] LABS: BAND PERCENT MAN 12 % (0-8); BASOPHILS PERCENT MAN 0 % (0-2); EOSINOPHILS PERCENT MAN 0 % (0-6); LYMPHOCYTES ABSOLUTE MAN 0.89 K/mm3 (0.84-5.20); LYMPHOCYTES PERCENT MAN 2 % (21-46); METAMYELOCYTE ABSOLUTE MAN 0.44 K/mm3 (0.00-0.00); METAMYELOCYTE PERCENT MAN 1 % (0-0); MONOCYTES ABSOLUTE MAN 0.89 K/mm3 (0.16-1.47); MONOCYTES PERCENT MAN 2 % (4-13); MYELOCYTE ABSOLUTE MAN 0.44 K/mm3 (0.00-0.00); MYELOCYTE PERCENT MAN 1 % (0-0); NEUTROPHILS ABSOLUTE MAN 41.95 K/mm3 (1.96-9.15); SEG NEUTROPHILS PERCENT MAN 82 % (41-73); TOTAL CELLS COUNTED 100
--- NOTE | 2021-05-09 05:55 | NUR ---
SHIFT SUMMARY / CONFUSION / LOW HGB PT PCU STATUS. A&O W/ PT CONFUSION UPON CARE ASSUMPTION STATING HAVING WOKEN UP THINKING HE WAS AT HOME & WAS GOING TO GET A COAT OUT OF HIS HOME CLOSET, PT LATER CONFUSED AGAIN, TAKING OFF HIS AIRVO W/ SPO2 DECREASE TO 70's. WHEN NURSE INFORMING PT ABOUT PLACING OXYGEN BACK IN NOSE, PT STATING "WHICH NOSE? THERE ARE SO MANY NOSES EVERYWHERE." PT THEN STATING "THERE's SO MUCH CHOCOLATE PUDDING AND HUCKLEBERRIES AROUND." PT CONTINUING ON SAYING THINGS NOT MAKING SENSE. PT ABLE TO THEN SLEEP & WOKE MORE ORIENTED. VSS. MONITOR SHOWING SR, HR 70's-80's. HGB 6.8 THIS AM W/ ORDER FROM MD FOUNTAIN TO TRANSFUSE 1 UNIT PRBC's. PT W/ NO SIGNS OF BLEEDING THIS SHIFT.
--- NOTE | 2021-05-09 07:20 | NUR ---
ASSUMED CARE: PT SINUS ASHU ON TELE WITH HR 58-62 AT THIS TIME. AIRVO IN PLACE 45L AND 40% FIO2 AT THIS TIME. UNIT OF PRBCS INFUSING. NO OTHER NEEDS OR CONCERNS AT THIS TIME.
--- NOTE | 2021-05-09 12:21 | NUR ---
DR SHIELDS REQUESTED THAT WE TRANSITION PT FROM AIRVO TO OXYMIZER. TITRATED TO 4L AT THIS TIME.
[2021-05-09 14:18] LABS: Hematocrit 26.7 % (37.0-53.0); Hemoglobin 8.6 g/dL (13.5-17.5)
--- NOTE | 2021-05-09 17:45 | NUR ---
REPORT GIVEN TO SUKHWINDER ABEBE. PT TRANSFERRED VIA WHEEL CHAIR TO PCU 11 VIA WHEEL CHAIR BY HOSPITAL STAFF. PT STATED HE WOULD CALL AND LET HER KNOW ABOUT TRANSFER.
--- NOTE | 2021-05-09 18:03 | NUR ---
TRANSFER FROM ICU PT TRANSFERRED FROM ICU TO PCU. PT ARRIVED ON 4L O2 VIA NC SATS 92% AND ABOVE. PT ABLE TO INDEPENDENTLY TRANSFER FROM WHEELCHAIR TO BED. LUNGS DIM THROUGHOUT, PT IN SR HR 80s. VS STABLE. PT RECEIVED 1 UNIT PRBC THIS MORNING WHILE IN ICU, HgB IMPROVED. PT DENIES BLOODY EMESIS AT THIS TIME. PLEUREX DRAIN ON THE RIGHT SIDE DUE TO LUNG CANCER, IT IS CURRENTLY CLAMPED OFF PER DR. GUERRERO'S ORDERS. PT HAS A RIGHT UPPER ARM POWERGLIDE. PT USES 2L O2 AT BASELINE AND CPAP AT NIGHT. PT IS RESTING IN BED AT THIS TIME
[2021-05-09 22:21] LABS: Hematocrit 26.1 % (37.0-53.0); Hemoglobin 8.3 g/dL (13.5-17.5)
[2021-05-10 05:57] LABS: Hematocrit 25.6 % (37.0-53.0); Hemoglobin 8.3 g/dL (13.5-17.5); Mean Corpuscular HGB 28.1 pg (26.0-34.0); Mean Corpuscular HGB Conc 32.4 g/dL (31.5-36.5); Mean Corpuscular Volume 87 fL (80-100); Mean Platelet Volume 10.2 fL (9.1-12.4); NRBC ABSOLUTE 0.16 K/mm3 (0.00-0.02); NRBC Auto 0.3 /100 WBC (0.0-0.2); Platelet Count 276 K/mm3 (150-400); RDW Coefficient Variation 20.6 % (11.7-14.2); RDW Standard Deviation 59.2 fL (35.1-46.3); Red Blood Cell Count 2.95 M/mm3 (4.30-5.90); White Blood Cell Count 49.78 K/mm3 (4.00-11.30)
[2021-05-10 06:07] LABS: Albumin, Blood 2.4 g/dL (3.4-5.0); Anion Gap 7 mmol/L (6-16); Blood Urea Nitrogen 36 mg/dL (8-24); CO2, Blood 25 mmol/L (21-32); Calcium, Blood 8.4 mg/dL (8.5-10.1); Chloride, Blood 113 mmol/L (98-108); Creatinine, Blood 1.03 mg/dL (0.60-1.20); Glomerular Filtration Rate >60 (60-); Glucose, Blood 145 mg/dL (70-99); Phosphorus, Blood 3.6 mg/dL (2.5-4.9); Potassium, Blood 3.8 mmol/L (3.5-5.5); Sodium, Blood 145 mmol/L (136-145)
[2021-05-10 06:08] LABS: BAND PERCENT MAN 18 % (0-8); BASOPHILS PERCENT MAN 0 % (0-2); EOSINOPHILS PERCENT MAN 0 % (0-6); LYMPHOCYTES ABSOLUTE MAN 0.99 K/mm3 (0.84-5.20); LYMPHOCYTES PERCENT MAN 2 % (21-46); METAMYELOCYTE ABSOLUTE MAN 0.49 K/mm3 (0.00-0.00); METAMYELOCYTE PERCENT MAN 1 % (0-0); MONOCYTES ABSOLUTE MAN 1.99 K/mm3 (0.16-1.47); MONOCYTES PERCENT MAN 4 % (4-13); NEUTROPHILS ABSOLUTE MAN 46.29 K/mm3 (1.96-9.15); SEG NEUTROPHILS PERCENT MAN 75 % (41-73); TOTAL CELLS COUNTED 100
--- NOTE | 2021-05-10 07:35 | NUR ---
SUMMARY NO ACUTE CHANGES NOTED THROUGH THE NIGHT. NO HEMOPYTSIS REPORTED OR SEEN, PT CONTINUES TO HAVE A DRY COUGH. VSS, 4 L O2 VIA NC. PT REFUSED CPAP LAST NIGHT. HE WAS RESTLESS & DID NOT SLEEP WELL. PT ENC TO HAVE HIS BRING CPAP IN TODAY. REPORT GIVEN TO DAY RN. CALL LIGHT IN REACH,
[2021-05-10 09:44] LABS: Vancomycin, Trough 24.2 ug/mL (5.0-10.0)
--- NOTE | 2021-05-10 12:12 | NUR ---
TRANSFER TO MEDICAL FLOOR. PT IS TO TRANSFER TO MEDICAL FLOOR FOLLOWING HIS LUNCH. PT'S TELE HAS BEEN DISCONTINUED, HE STILL HAS A POWERGLIDE IN THE RIGHT UPPER ARM THAT DRAWS WELL AND WAS REDRESSED DURING NOC SHIFT. VS STABLE, PT ON 4L O2 OR CPAP WHEN SLEEPING. PT WAS ABLE TO HAVE A NAP THIS MORNING AND IS FEELING MUCH BETTER, HIS ANXIETY HAS DECREASED WELL. REPORT WAS GIVEN TO RN FOR MED ROOM 326.
--- NOTE | 2021-05-10 12:41 | NUR ---
BP IS SLIGHTLY ELEVATED PRIOR TO TRANSFER FROM PCU. PT REPORTS BEING ANXIOUS BUT DECLINED THE XANAX. PT WAS GIVEN APRESOLINE AND THE RN ON MEDICAL FLOOR WAS MADE AWARE SO HE COULD DO THE FOLLOW UP BP AFTER THE MED ADMINISTRATION. PT DENIES SOB, CP AND DISCOMFORT. MED RN ACCEPTED THIS AND AGREED TO THE TRANSFER. PT WAS TRANSFERRED VIA WHEELCHAIR AT APPROXIMATELY 1240
[2021-05-10 15:32] LABS: Hematocrit 27.3 % (37.0-53.0); Hemoglobin 8.6 g/dL (13.5-17.5)
--- NOTE | 2021-05-10 18:12 | NUR ---
SHIFT SUMMARY PT TRANSFERRED TO UNIT FROM PCU THIS SHIFT. RECEIVED REPORT FROM SUKHWINDER ABEBE. PT IS A&OX4, ABLE TO MAKE NEEDS KNOWN, PLEASANT AND COOPERATIVE TO CARE. NO C/O ANY PAIN OR ANY DISCOMFORT THIS SHIFT. NO C/O CP, SOB, OR N&V. PT ON 4LPM O2 VIA NC, SATS >92%. NO EPISODES OF HEMOPTYSIS NOTED THIS SHIFT. PT's AT BEDSIDE. PT ON IV ABX ORDERED, NO ASE NOTED. PLEURX DRAIN TO RLQ OF ABD IN PLACE, DRESSING C/D/I. BED AT LOWEST POSITION. CALL LIGHT WITHIN REACH.
[2021-05-10 18:30] LABS: Vancomycin, Random 15.3 ug/mL
--- NOTE | 2021-05-10 19:05 | NUR ---
ASSUMED CARE RECEIVED REPORT FROM SUKHWINDER STONE. PT RESTING, IN NAD. NO ACUTE NEEDS ASSESSED AT THIS TIME. CALL LIGHT, POSSESSIONS IN REACH, BED IN LOW AND LOCKED POSITION.
[2021-05-10 23:50] LABS: Hematocrit 26.9 % (37.0-53.0); Hemoglobin 8.5 g/dL (13.5-17.5)
--- NOTE | 2021-05-11 03:56 | NUR ---
APRON TRIMMER SUMMARY PT ASLEEP, IN NAD. VS REVIEWED,WNL. O2 SATS >92% ON CPAP OR 4L/NC. NO C/O SOB ON EXERTION, PT REPORTS IT APPEARS TO BE IMPROVING. PLEURX DRAIN TUBE IN PLACE, DRSG C/D/I. PT SLEPT ON AND OFF T/O NIGHT. NO ACUTE NEEDS ASSESSED AT THIS TIME. CALL LIGHT, POSSESSIONS IN REACH, BED IN LOW AND LOCKED POSITION WITH ALARMS ON. WILL CONTINUE TO PROVIDE CARE NEEDED UNTIL REPORT GIVEN TO ONCOMING RN.
[2021-05-11 05:17] LABS: Hematocrit 27.7 % (37.0-53.0); Hemoglobin 8.7 g/dL (13.5-17.5); Mean Corpuscular HGB 27.6 pg (26.0-34.0); Mean Corpuscular HGB Conc 31.4 g/dL (31.5-36.5); Mean Corpuscular Volume 88 fL (80-100); Mean Platelet Volume 10.2 fL (9.1-12.4); NRBC Auto 0.2 /100 WBC (0.0-0.2); Platelet Count 222 K/mm3 (150-400); RDW Standard Deviation 60.9 fL (35.1-46.3); Red Blood Cell Count 3.15 M/mm3 (4.30-5.90)
[2021-05-11 05:45] LABS: Albumin, Blood 2.3 g/dL (3.4-5.0); Anion Gap 5 mmol/L (6-16); Blood Urea Nitrogen 27 mg/dL (8-24); Bun/Creatinine Ratio 29.9 (12.0-20.0); CO2, Blood 27 mmol/L (21-32); Calcium, Blood 8.2 mg/dL (8.5-10.1); Chloride, Blood 110 mmol/L (98-108); Glomerular Filtration Rate >60 (60-); Glucose, Blood 89 mg/dL (70-99); Potassium, Blood 3.6 mmol/L (3.5-5.5); Sodium, Blood 142 mmol/L (136-145)
[2021-05-11 05:55] LABS: BAND PERCENT MAN 9 % (0-8); BASOPHILS PERCENT MAN 0 % (0-2); EOSINOPHILS PERCENT MAN 0 % (0-6); LYMPHOCYTES ABSOLUTE MAN 4.17 K/mm3 (0.84-5.20); LYMPHOCYTES PERCENT MAN 10 % (21-46); MONOCYTES ABSOLUTE MAN 0.41 K/mm3 (0.16-1.47); MONOCYTES PERCENT MAN 1 % (4-13); NEUTROPHILS ABSOLUTE MAN 37.11 K/mm3 (1.96-9.15); SEG NEUTROPHILS PERCENT MAN 80 % (41-73); TOTAL CELLS COUNTED 100
--- NOTE | 2021-05-11 17:56 | NUR ---
SHIFT SUMMARY PT A&OX4, ABLE TO MAKE NEEDS KNOWN, PLEASANT AND COOPERATIVE TO CARE. NO C/O PAIN OR ANY DISCOMFORT. PT ON 4LPM O2 VIA NC, SATS >92%. NO EPISODES OF HEMOPTYSIS NOTED THIS SHIFT OR ANY OTHER ISSUES. PT CONTINUES ON IV ABX ORDERED, NO ASE NOTED. BED AT LOWEST POSITION. CALL LIGHT WITHIN REACH.
--- NOTE | 2021-05-11 19:10 | NUR ---
ASSUMED CARE RECEIVED REPORT FROM SUKHWINDER STONE. PT RESTING, IN NAD. AT THE BEDSIDE. DENY NEEDS AT THIS TIME. CALL LIGHT, POSSESSIONS IN REACH.
--- NOTE | 2021-05-12 05:38 | NUR ---
RN HEMODIALYSIS SUMMARY PT RESTING, IN NAD. NO ACUTE CHANGES TO REPORT OVERNIGHT, PT HAS BEEN SLEEPING T/O. VS REVIEWED,WNL; O2 SATS >92% ON 4L/NC OR CPAP WITH 4L O2 BLEED-IN; DENIES SOB, 02 SATS RECOVER QUICKLY AFTER ACTIVITY. DENIES PAIN OR DISCOMFORT. PLEUREX DRAIN REMAINS C/D/I. DENIES NEEDS AT THIS TIME. CALL LIGHT, POSSESSIONS IN REACH, BED IN LOW AND LOCKED POSITION WITH ALARMS ON. ABX INFUSING ORDERED. WILL CONTINUE TO PROVIDE CARE UNTIL REPORT GIVEN TO ONCOMING RN.
[2021-05-12 05:39] LABS: Hematocrit 26.5 % (37.0-53.0); Hemoglobin 8.3 g/dL (13.5-17.5); Mean Corpuscular HGB 27.8 pg (26.0-34.0); Mean Corpuscular HGB Conc 31.3 g/dL (31.5-36.5); Mean Corpuscular Volume 89 fL (80-100); Mean Platelet Volume 10.3 fL (9.1-12.4); NRBC ABSOLUTE 0.04 K/mm3 (0.00-0.02); NRBC Auto 0.1 /100 WBC (0.0-0.2); Platelet Count 174 K/mm3 (150-400); RDW Coefficient Variation 21.2 % (11.7-14.2); RDW Standard Deviation 63.8 fL (35.1-46.3); Red Blood Cell Count 2.99 M/mm3 (4.30-5.90); White Blood Cell Count 35.63 K/mm3 (4.00-11.30)
[2021-05-12 06:09] LABS: Albumin, Blood 2.2 g/dL (3.4-5.0); Anion Gap 4 mmol/L (6-16); Blood Urea Nitrogen 21 mg/dL (8-24); Bun/Creatinine Ratio 25.4 (12.0-20.0); CO2, Blood 28 mmol/L (21-32); Calcium, Blood 8.1 mg/dL (8.5-10.1); Chloride, Blood 110 mmol/L (98-108); Creatinine, Blood 0.83 mg/dL (0.60-1.20); Glomerular Filtration Rate >60 (60-); Glucose, Blood 101 mg/dL (70-99); Phosphorus, Blood 2.7 mg/dL (2.5-4.9); Potassium, Blood 3.4 mmol/L (3.5-5.5); Sodium, Blood 142 mmol/L (136-145)
[2021-05-12 07:19] LABS: BAND PERCENT MAN 8 % (0-8); BASOPHILS PERCENT MAN 0 % (0-2); EOSINOPHILS PERCENT MAN 0 % (0-6); LYMPHOCYTES ABSOLUTE MAN 2.13 K/mm3 (0.84-5.20); LYMPHOCYTES PERCENT MAN 6 % (21-46); MONOCYTES ABSOLUTE MAN 1.06 K/mm3 (0.16-1.47); MONOCYTES PERCENT MAN 3 % (4-13); MYELOCYTE ABSOLUTE MAN 1.06 K/mm3 (0.00-0.00); MYELOCYTE PERCENT MAN 3 % (0-0); NEUTROPHILS ABSOLUTE MAN 31.35 K/mm3 (1.96-9.15); SEG NEUTROPHILS PERCENT MAN 80 % (41-73); TOTAL CELLS COUNTED 100
[2021-05-12] MEDS ORDERED: PRED20 PO (12:54)
--- NOTE | 2021-05-12 18:13 | NUR ---
DISCHARGE SUMMARY PT AxOx4. PLEASANT AND COOPERATIVE WITH CARE. PT DISCHARGING TO HOME TODAY WITH . PT DENIES PAIN. VITALS REVIEWED. FINAL IV ABX INFUSED. DC INSTRUCTIONS DISCUSSED WITH PATIENT AND , INCLUDING FOLLOW UP APPOINTMENTS, EQUIPMENT AND MEDICATIONS. PT AND VERBALIZE UNDERSTANDING. DENIES ANY FURTHER QUESTIONS AT THIS TIME. PT SAFELY ESCORTED OUT VIA WC WITH SKEIN INSPECTOR AND .
== END 2021-05-12 16:36 | disposition home or self-care (01) | DRG 180 ==
LOC: ER 13:34 → ICUE 16:33 → ICUW 16:33 → ICUE 18:04 → PCU 05-09 17:35 → MEDS 05-10 12:35
PROVIDERS: Family Medicine; Internal Medicine; Internal Medicine Critical Care Medicine; Pharmacist; Physician Assistant; ADMIT Hospitalist
PROC: 30233N1 Transfusion of Nonautologous Red Blood Cells into Peripheral Vein, Percutaneous Approach (ICD-10-PCS; principal; 2021-05-06)
DX: C78.01 Secondary malignant neoplasm of right lung (principal); J96.22 Acute and chronic respiratory failure with hypercapnia; R04.2 Hemoptysis; D62 Acute posthemorrhagic anemia; R04.89 Hemorrhage from other sites in respiratory passages; Z20.822 Contact with and (suspected) exposure to COVID-19; E78.5 Hyperlipidemia, unspecified; I10 Essential (primary) hypertension; F41.9 Anxiety disorder, unspecified; G47.33 Obstructive sleep apnea (adult) (pediatric); T45.515A Adverse effect of anticoagulants, initial encounter; D63.0 Anemia in neoplastic disease; E11.9 Type 2 diabetes mellitus without complications; Z86.718 Personal history of other venous thrombosis and embolism; Z86.010 Personal history of colon polyps; Z90.49 Acquired absence of other specified parts of digestive tract; Z98.890 Other specified postprocedural states; Z87.891 Personal history of nicotine dependence; Z92.21 Personal history of antineoplastic chemotherapy; Z79.01 Long term (current) use of anticoagulants; Z79.899 Other long term (current) drug therapy; Z99.81 Dependence on supplemental oxygen; Z86.711 Personal history of pulmonary embolism
CPT/HCPCS: 36415; 36430; 71045; 71046; 71275; 80048; 80053; 80069; 80202; 83605; 84145; 85014; 85018; 85025; 86850; 86900; 86901; 86923; 87040; 93005; 93010; 94003; 94660; 94762; 96365-59; 99285-25; A9270; C1751; J0360; J0692; J2060; J2543; J2930; J3010; J3370; J7030; J7040; J7050; J7512; P9016; Q9967

== ENCOUNTER 2021-05-31 19:33 | Inpatient (IN) | payer OTHER ==
[~2021-05-31] VITALS: Ht 177.8 cm; Wt 81.1 kg
[~2021-05-31 19:33] MED LIST changes: +AMLODIPINE BESY10 MG PO; +LISI5 PO; +PRED20 PO; +XARELTO20 M1 PO
[2021-05-31 20:24] LABS: Hematocrit 23.5 % (37.0-53.0); Hemoglobin 7.2 g/dL (13.5-17.5); Mean Corpuscular HGB Conc 30.6 g/dL (31.5-36.5); Mean Corpuscular Volume 91 fL (80-100); Mean Platelet Volume 9.8 fL (9.1-12.4); NRBC ABSOLUTE 0.06 K/mm3 (0.00-0.02); NRBC Auto 0.3 /100 WBC (0.0-0.2); Platelet Count 275 K/mm3 (150-400); RDW Coefficient Variation 21.7 % (11.7-14.2); RDW Standard Deviation 71.5 fL (35.1-46.3); Red Blood Cell Count 2.57 M/mm3 (4.30-5.90); White Blood Cell Count 18.73 K/mm3 (4.00-11.30)
[2021-05-31 20:44] LABS: Alanine Aminotransfer (ALT/SGP 77 U/L (12-78); Albumin, Blood 2.3 g/dL (3.4-5.0); Albumin/Globulin Ratio 0.6 (0.8-1.8); Alk Phos 216 U/L (50-136); Anion Gap 4 mmol/L (6-16); Aspartate Aminotrans (AST/SGOT 35 U/L (12-37); Bilirubin, Total 0.4 mg/dL (0.1-1.0); Blood Urea Nitrogen 15 mg/dL (8-24); Bun/Creatinine Ratio 14.4 (12.0-20.0); CO2, Blood 30 mmol/L (21-32); Calcium, Blood 7.2 mg/dL (8.5-10.1); Chloride, Blood 105 mmol/L (98-108); Creatinine, Blood 1.04 mg/dL (0.60-1.20); Globulin, Blood 3.7 g/dL (2.2-4.0); Glomerular Filtration Rate >60 (60-); Glucose, Blood 142 mg/dL (70-99); Potassium, Blood 3.4 mmol/L (3.5-5.5); Sodium, Blood 139 mmol/L (136-145)
[2021-05-31 20:57] LABS: BAND PERCENT MAN 16 % (0-8); BASOPHILS PERCENT MAN 0 % (0-2); EOSINOPHILS PERCENT MAN 0 % (0-6); LYMPHOCYTES % ATYPICAL MANUAL 2 % (0-0); LYMPHOCYTES ABSOLUTE MAN 1.31 K/mm3 (0.84-5.20); LYMPHOCYTES PERCENT MAN 5 % (21-46); METAMYELOCYTE ABSOLUTE MAN 0.37 K/mm3 (0.00-0.00); METAMYELOCYTE PERCENT MAN 2 % (0-0); MONOCYTES ABSOLUTE MAN 0.18 K/mm3 (0.16-1.47); MONOCYTES PERCENT MAN 1 % (4-13); NEUTROPHILS ABSOLUTE MAN 16.85 K/mm3 (1.96-9.15); SEG NEUTROPHILS PERCENT MAN 74 % (41-73); TOTAL CELLS COUNTED 100
[2021-05-31 21:18] LABS: International Normalized Ratio 1.3; Prothrombin Time Results 13.8 Sec (9.7-11.5)
[2021-05-31] MEDS ORDERED: CATAPRES0.1 MG PO (23:03)
[2021-05-31] MEDS ORDERED: LISI5 PO (23:04)
[2021-05-31] MEDS ORDERED: XARELTO20 MG PO (23:05)
[2021-05-31] MEDS ORDERED: PRED20 PO (23:06)
[2021-05-31] MEDS ORDERED: PANT20 PO (23:06)
[2021-06-01] MEDS ORDERED: BENZ100A PO
--- NOTE | 2021-06-01 01:23 | NUR ---
05/31/21 2355 PT ARRIVED TO ROOM FROM ER IN STABLE CONDITION. PT REPORTS PAIN IN TEMPLES, WILL MEDICATE ORDERED AND EVAL FOR EFFECT. DENIES SOB, ON 4L O2 NC AT 94%. NO OTHER APPARENT SIGNS OF DISTRESS. CALL LIGHT IS IN REACH.
--- NOTE | 2021-06-01 03:26 | NUR ---
0130 PT LYING IN BED, GOT SANDWICH FOR PT. DENIES NEED FOR ANYTHING ELSE AT THIS TIME. TELE IS ST AT 100 PER TELE ROBOTICS APPLICATION ENGINEER. NO APPARENT SIGNS OF DISTRESS. CALL LIGHT IS IN REACH.
--- NOTE | 2021-06-01 03:27 | NUR ---
PT LYING IN BED, EYES CLOSED, APPEARS TO BE RESTING. BREATHING IS EVEN, UNLABORED. NO APPARENT SIGNS OF DISTRESS. CALL LIGHT IS IN REACH.
--- NOTE | 2021-06-01 03:33 | NUR ---
0200 PT LYING IN BED, EYES CLOSED, APPEARS TO BE RESTING. BREATHING IS EVEN, UNLABORED. NO APPARENT SIGNS OF DISTRESS. CALL LIGHT IS IN REACH.
--- NOTE | 2021-06-01 04:57 | NUR ---
PT IS AAO X 4, DENIES SOB BUT ON 4L O2 NC AT 94%. REPORTED PAIN IN TEMPLES, GOT ROXYCODONE. HAD A TEMP OF 102.6 IN ER, GOT TYLENOL, TEMP CAME DOWN TO 100.1.TELE ST 100. PLEUREX DRAIN R LUNG. USES CPAP.
[2021-06-01 05:13] LABS: Hematocrit 21.7 % (37.0-53.0); Hemoglobin 6.6 g/dL (13.5-17.5); Mean Corpuscular HGB 28.3 pg (26.0-34.0); Mean Corpuscular HGB Conc 30.4 g/dL (31.5-36.5); Mean Corpuscular Volume 93 fL (80-100); Mean Platelet Volume 9.8 fL (9.1-12.4); NRBC ABSOLUTE 0.03 K/mm3 (0.00-0.02); NRBC Auto 0.2 /100 WBC (0.0-0.2); Platelet Count 220 K/mm3 (150-400); RDW Coefficient Variation 21.8 % (11.7-14.2); Red Blood Cell Count 2.33 M/mm3 (4.30-5.90); White Blood Cell Count 16.74 K/mm3 (4.00-11.30)
[2021-06-01 05:34] LABS: BAND PERCENT MAN 3 % (0-8); BASOPHILS PERCENT MAN 0 % (0-2); EOSINOPHILS PERCENT MAN 0 % (0-6); LYMPHOCYTES ABSOLUTE MAN 0.66 K/mm3 (0.84-5.20); LYMPHOCYTES PERCENT MAN 4 % (21-46); METAMYELOCYTE ABSOLUTE MAN 0.16 K/mm3 (0.00-0.00); METAMYELOCYTE PERCENT MAN 1 % (0-0); MONOCYTES ABSOLUTE MAN 0.16 K/mm3 (0.16-1.47); MONOCYTES PERCENT MAN 1 % (4-13); MYELOCYTE ABSOLUTE MAN 0.33 K/mm3 (0.00-0.00); MYELOCYTE PERCENT MAN 2 % (0-0); SEG NEUTROPHILS PERCENT MAN 89 % (41-73); TOTAL CELLS COUNTED 100
[2021-06-01 05:41] LABS: Alanine Aminotransfer (ALT/SGP 62 U/L (12-78); Albumin, Blood 1.9 g/dL (3.4-5.0); Albumin/Globulin Ratio 0.6 (0.8-1.8); Alk Phos 186 U/L (50-136); Anion Gap 5 mmol/L (6-16); Aspartate Aminotrans (AST/SGOT 22 U/L (12-37); Bilirubin, Total 0.3 mg/dL (0.1-1.0); Blood Urea Nitrogen 15 mg/dL (8-24); Bun/Creatinine Ratio 14.4 (12.0-20.0); CO2, Blood 28 mmol/L (21-32); Calcium, Blood 6.4 mg/dL (8.5-10.1); Chloride, Blood 109 mmol/L (98-108); Creatinine, Blood 1.04 mg/dL (0.60-1.20); Globulin, Blood 3.3 g/dL (2.2-4.0); Glomerular Filtration Rate >60 (60-); Glucose, Blood 123 mg/dL (70-99); Potassium, Blood 3.6 mmol/L (3.5-5.5); Sodium, Blood 142 mmol/L (136-145); Total Protein, Blood 5.2 g/dL (6.4-8.2)
--- NOTE | 2021-06-01 06:15 | NUR ---
PT LYING IN BED, AWAKE, NO APPARENT SIGNS OF DISTRESS. DENIES NEED FOR ANYTHING AT THIS TIME. CALL LIGHT IS IN REACH. PT'S HGB IS 6.6 THIS AM, HAVING A DIFFICULT TIME GETTING AHOLD OF DR KEN TO LET HIM KNOW, WILL KEEP TRYING. NO OTHER CHANGES THIS SHIFT.
[2021-06-01 10:51] LABS: Percent Saturation 9.2 % (20.0-50.0)
[2021-06-01 16:57] LABS: Hemoglobin 9.4 g/dL (13.5-17.5)
--- NOTE | 2021-06-01 19:57 | NUR ---
SUMM- PT A/O X4- UNDERLINE ANXIETY RELATED TO CIRCUMSTANCES. PT HAD 2 UNITS PRBC'S TODAY RELATED TO LOW H/H, REPEAT H/H AT 1630. PT HAD HEADACHE EARLY SHIFT RESOVED AFTER TYLENOL. PT HAS ELEVETED TEMP STARTED BEFORE BLOOD ADMIN, RESOLVED AFTER TYLENOL AND STARTED TO SPIKE. CALLED DR ANTOINE WITH ONE TIME ORDER FOR IBPROFEN. ALSO CLARIFIED SHE WANTED THE NS AT 150 DC'D AND SL IV. PT TOLERATING REG DIET AND TOLERATING FLUIDS. HAS O2 AT 4L AND SATS 92-95%. RESP EVEN UNLABORED WITH CRACKLES BIBASILAR. HAD CHEST CT TODAY. REOPRTED TO GAYLE PRETTY.
[2021-06-02 05:36] LABS: Hematocrit 26.8 % (37.0-53.0); Hemoglobin 8.6 g/dL (13.5-17.5); Mean Corpuscular HGB 28.3 pg (26.0-34.0); Mean Corpuscular HGB Conc 32.1 g/dL (31.5-36.5); Mean Platelet Volume 9.7 fL (9.1-12.4); NRBC ABSOLUTE 0.03 K/mm3 (0.00-0.02); NRBC Auto 0.2 /100 WBC (0.0-0.2); Platelet Count 208 K/mm3 (150-400); RDW Coefficient Variation 19.5 % (11.7-14.2); RDW Standard Deviation 62.4 fL (35.1-46.3); Red Blood Cell Count 3.04 M/mm3 (4.30-5.90); White Blood Cell Count 14.15 K/mm3 (4.00-11.30)
[2021-06-02 05:39] LABS: Mean Corpuscular Volume 88 fL (80-100)
--- NOTE | 2021-06-02 05:51 | NUR ---
SHIFT SUMMARY SHIFT STARTED WELL FOR PT, HE WAS ABLE TO GET REST FOR 1ST HALF OF SHIFT AND TEMPERATURE WAS SUCESSFULLY DECREASED WITH ANTIPYRETICS THAT WERE ADMINISTERED SHORTLY BEFORE SHIFT CHANGE. TEMPERATURE WAS CLOSELY MONITORED T/O SHIFT. PT A/OX4, PLESANT AND COOPERATIVE WITH CARE, BUT IS GENERALLY ANXIOUS. PT HAD A PANIC ATTACK SHORTLY AFTER MIDNIGHT. NOT SURE WHAT TRIGGERED PANIC ATTACK, BUT PT BEGAN COMPLAINING OF BEING COLD, AND WAS SHAKING AND HYPERVENTALATING UNCONTROLLABLY. PT HAS PMH OF ANXIETY, AND PANIC ATTACKS. HE CALLED AND SPOKE WITH DURING THIS EPISODE, AND REPORTS THAT SHE IS HIS SUPPORT PERSON. SPEAKING WITH HER HELPED ALEVIATE SOME OF HIS ANXIETY, BUT PT STILL HIGHLY ANXIOUS. REQUESTED TO COME AND SPEND THE REST OF THE NIGHT WITH PT TO BE HIS SUPPORT PERSON. CLINICAL COORDINATOR BERNARDA BELL AND INJURY PREVENTION COORDINATOR SONI CHAVEZ RN AWARE. PT ARRIVED AROUND 0200. DR. KEN CALLED AND NOTIFIED OF PT PANIC ATTACKS AND COMPLAINTS OF SOB. XANAX AND BD PROTOCOL ORDERED. ONCE ARRIVED TO THE ROOM PT WAS STILL QUITE ANXIOUS, BUT THE PANIC HAD EASED AND PT BECAME MUCH MORE RELAXED. REQUESTED TO HOLD OFF ON XANAX FOR NOW, AND REQUEST THAT WE GIVE DURING THE DAY IF NEEDED. PT HAS BEEN ABLE TO REST SINCE HIS 'S ARRIVAL. IV TO RIGHT FA INFILTRATED THIS SHIFT. PT STILL HAS ANOTHER IV TO THE LEFT FA THAT CAN BE USED FOR IV ANTIBIOTICS. HGB STABLE THIS SHIFT AFTER RECEIVING 2 UNITS OF PRBCS YESTERDAY. NO OTHER CHANGES TO REPORT. BED IN LOWEST POSITION, CALL LIGHT WITHIN REACH.
[2021-06-02 05:55] LABS: Anion Gap 7 mmol/L (6-16); Blood Urea Nitrogen 13 mg/dL (8-24); Bun/Creatinine Ratio 12.9 (12.0-20.0); CO2, Blood 26 mmol/L (21-32); Calcium, Blood 6.7 mg/dL (8.5-10.1); Chloride, Blood 106 mmol/L (98-108); Creatinine, Blood 1.01 mg/dL (0.60-1.20); Glomerular Filtration Rate >60 (60-); Glucose, Blood 105 mg/dL (70-99); Phosphorus, Blood 2.9 mg/dL (2.5-4.9); Potassium, Blood 3.5 mmol/L (3.5-5.5); Sodium, Blood 139 mmol/L (136-145)
--- NOTE | 2021-06-02 11:13 | NUR ---
Spiritual care visit conducted. Patient is sitting on EOB and alert. Patient tells me about the cancer he is being treated for, about his spouse and 17yr old son and about his many hobbies (hunting, fishing, kayaking and riding his [employer] motorcycle). He tells me stories of the good times he has had with his family and how he is contending to be well enough for more of those adventures. I reinforce his helpful attitude, normalize his experience and provide therapeutic listening. I will continue to assist patient in dealing with the deeper and more reflective aspects of living with disease.
[2021-06-02 12:35] LABS: Vancomycin, Trough 5.9 ug/mL (5.0-10.0)
--- NOTE | 2021-06-02 18:40 | NUR ---
SHIFT SUMMARY: NO ACUTE EVENTS TO REPORT THIS SHIFT. PT A&O; CALM AND COOPERATIVE WITH CARE. MEDICATED FOR CORTES PAIN PER EMAR; PT ALSO CONCERNED ABOUT POSSIBLE FEVER.; ORAL TEMPS. O2 @ 4L HUMIDIFIED. TELE IN PLACE. ONCOLOGY CONSULT ORDERED (DR PAYNE) THIS SHIFT. IV ABX CONTINUING. WCTM.
--- NOTE | 2021-06-03 04:16 | NUR ---
SHIFT SUMMARY ADMITTED FOR PNEUMONIA/SEPSIS. LIMITED CODE (RX & INTUBATE ONLY). HE HAS STAGE FOUR LUNG CANCER W/PE'S. HX OF PE'S, XARELTO HAD TO BE PREVIOUSLY STOPPED DUE TO ALVEOLAR HEMORRHAGE. XARELTO IS NOW RESTARTED DUE TO MULTIPLE PE'S. LAST CHEMO DONE ON WEDNESDAY. DR PAYNE IS ONCOLOGY CONSULT. HE USES A CPAP @ NIGHT. 4 LPM O2 HERE DURING DAY. POWERGLIDE IN VIC. TELEMETRY: NSR W/PVC'S @ 76 BPM. IV ANTIB RX IS SCHEDULED. HX: OF ANXIETY, PANIC ATTACK REPORTED ON PREVIOUS GLASS FINISHER.
--- NOTE | 2021-06-03 06:41 | NUR ---
PT NOSEBLEED PT OBSERVED TO HAVE A LIGHT NOSEBLEED. PT HAS ANXIETY, PT OBSERVED TO BE SHAKING AND EXTREMELY ANXIOUS RE:NOSEBLEED. HE REFUSES ANXIETY MEDS. I DID INFORM HIM THAT THIS CAN SOMETIMES HAPPEN WHEN ON BLOOD THINNERS. PROVIDED PT WITH GAUZE FOR NOSTRIL.
[2021-06-03 13:41] LABS: Vancomycin, Trough 12.2 ug/mL (5.0-10.0)
[2021-06-03 13:42] LABS: Anion Gap 6 mmol/L (6-16); Blood Urea Nitrogen 15 mg/dL (8-24); Bun/Creatinine Ratio 13.8 (12.0-20.0); CO2, Blood 30 mmol/L (21-32); Chloride, Blood 102 mmol/L (98-108); Creatinine, Blood 1.09 mg/dL (0.60-1.20); Glomerular Filtration Rate >60 (60-); Glucose, Blood 150 mg/dL (70-99); Magnesium, Blood 1.3 mg/dL (1.6-2.4); Phosphorus, Blood 3.1 mg/dL (2.5-4.9); Potassium, Blood 3.2 mmol/L (3.5-5.5); Sodium, Blood 138 mmol/L (136-145)
[2021-06-03 14:14] LABS: Hemoglobin 8.5 g/dL (13.5-17.5); Mean Corpuscular HGB 28.6 pg (26.0-34.0); Mean Corpuscular HGB Conc 31.5 g/dL (31.5-36.5); Mean Corpuscular Volume 91 fL (80-100); Mean Platelet Volume 10.2 fL (9.1-12.4); Platelet Count 187 K/mm3 (150-400); RDW Coefficient Variation 19.9 % (11.7-14.2); Red Blood Cell Count 2.97 M/mm3 (4.30-5.90); White Blood Cell Count 10.16 K/mm3 (4.00-11.30)
[2021-06-03 14:33] LABS: BAND PERCENT MAN 8 % (0-8); BASOPHILS PERCENT MAN 0 % (0-2); EOSINOPHILS PERCENT MAN 0 % (0-6); LYMPHOCYTES % ATYPICAL MANUAL 1 % (0-0); LYMPHOCYTES PERCENT MAN 3 % (21-46); METAMYELOCYTE PERCENT MAN 2 % (0-0); MONOCYTES PERCENT MAN 1 % (4-13); NEUTROPHILS ABSOLUTE MAN 9.44 K/mm3 (1.96-9.15); SEG NEUTROPHILS PERCENT MAN 85 % (41-73); TOTAL CELLS COUNTED 100
--- NOTE | 2021-06-03 19:11 | NUR ---
SHIFT SUMMARY: NO ACUTE EVENTS TO REPORT THIS SHIFT. PT A&O; ANXIOUS; COOPERATIVE WITH CARE. MEDICATED FOR HEADACHE PAIN PER EMAR. HX STAGE 4 LUNG CA c PEs; ONCOLOGY (DR PAYNE) FOLLOWING. IV ABX CONTINUING. REPORT GIVEN TO ONCOMING RN.
--- NOTE | 2021-06-03 19:15 | NUR ---
ASSUMED CARE RECEIVED REPORT FROM SUKHWINDER CRA. PT RESTING, IN NAD; AT THE BEDSIDE. NO ACUTE NEEDS ASSESSED AT THIS TIME. CALL LIGHT, POSSESSIONS IN REACH.
[2021-06-04 06:22] LABS: Albumin, Blood 1.9 g/dL (3.4-5.0); Anion Gap 4 mmol/L (6-16); Blood Urea Nitrogen 14 mg/dL (8-24); Bun/Creatinine Ratio 13.1 (12.0-20.0); CO2, Blood 32 mmol/L (21-32); Calcium, Blood 7.1 mg/dL (8.5-10.1); Chloride, Blood 105 mmol/L (98-108); Creatinine, Blood 1.07 mg/dL (0.60-1.20); Glomerular Filtration Rate >60 (60-); Glucose, Blood 91 mg/dL (70-99); Magnesium, Blood 1.6 mg/dL (1.6-2.4); Phosphorus, Blood 2.5 mg/dL (2.5-4.9); Potassium, Blood 3.5 mmol/L (3.5-5.5); Sodium, Blood 141 mmol/L (136-145)
--- NOTE | 2021-06-04 06:44 | NUR ---
LIME BURNER SUMMARY PT ASLEEP, IN NAD. REPORTS SLEEPING BETTER TONIGHT. TOLERATED CPAP WELL, NO C/O DISCOMFORT OR PX. VS REVIEWED,WNL; 02 SATS WNL ON 5L/NC OR CPAP BLEED IN. AFEBRILE THIS AM. NO OTHER ACUTE CHANGES TO REPORT OVERNIGHT; VOIDING WELL IN URINAL. CONTINUES TO RECEIVE IV ABX. NO ACUTE NEEDS ASSESSED AT THIS TIME. CALL LIGHT, POSSESSIONS IN REACH, BED IN LOW AND LOCKED POSITION WITH ALARMS ON. WILL REPORT OFF TO ONCOMING RN.
[2021-06-04 13:52] LABS: Vancomycin, Trough 17.2 ug/mL (5.0-10.0)
--- NOTE | 2021-06-04 17:10 | NUR ---
SHIFT SUMMARY PT AxOx4. PLEASANT AND COOPERATIVE WITH CARE. PT DID NOT WANT TO GET OUT OF BED TODAY. PT REPORTED A HEADACHE EARLIER IN THE SHIFT. PT WAS MEDICATED AND UTILIZED ICE PACK WITH REPORTED RELIEF PER EMAR. PT VITALS SHOWED LOW GRADE FEVER AND TACHYCARDIA THIS SHIFT. PT EXPERIENCED A NOSE BLEED LASTING >1 HOUR THIS SHIFT. PT DID BECOME VERY ANXIOUS AND FIDGETY WITH NOSEBLEED TREATMENT MEASURES, WHICH I BELIEVE PROLONGED THE BLEEDING TIME. PT IS CURRENTLY RESTING IN BED TRYING TO REST AND RECOVER FROM NOSE BLEED. VITALS REVIEWED. PT DENIES ANY NEEDS AT THIS TIME. CALL LIGHT IN REACH.
[2021-06-05 05:05] LABS: Hematocrit 23.4 % (37.0-53.0); Hemoglobin 7.1 g/dL (13.5-17.5); Mean Corpuscular HGB 27.8 pg (26.0-34.0); Mean Corpuscular HGB Conc 30.3 g/dL (31.5-36.5); Mean Corpuscular Volume 92 fL (80-100); Mean Platelet Volume 11.1 fL (9.1-12.4); Platelet Count 140 K/mm3 (150-400); RDW Coefficient Variation 19.3 % (11.7-14.2); RDW Standard Deviation 64.6 fL (35.1-46.3); Red Blood Cell Count 2.55 M/mm3 (4.30-5.90); White Blood Cell Count 10.36 K/mm3 (4.00-11.30)
[2021-06-05 05:19] LABS: Albumin, Blood 1.9 g/dL (3.4-5.0); Anion Gap 3 mmol/L (6-16); Blood Urea Nitrogen 16 mg/dL (8-24); Bun/Creatinine Ratio 14.7 (12.0-20.0); CO2, Blood 31 mmol/L (21-32); Calcium, Blood 7.5 mg/dL (8.5-10.1); Chloride, Blood 106 mmol/L (98-108); Creatinine, Blood 1.09 mg/dL (0.60-1.20); Glomerular Filtration Rate >60 (60-); Glucose, Blood 143 mg/dL (70-99); Phosphorus, Blood 2.8 mg/dL (2.5-4.9); Potassium, Blood 3.4 mmol/L (3.5-5.5); Sodium, Blood 140 mmol/L (136-145)
--- NOTE | 2021-06-05 06:56 | NUR ---
SHIFT SUMMARY PT IS A 66 Y/O MALE, ADMITTED FOR SEPSIS R/T PNA. HE IS A&O X 3, ANXIOUS AT TIMES, 1PA TO THE BSC. PT HAD A NOSEBLEED DURING THE NIGHT FOR APPROXIMATELY 10-15 MINUTES. PT IS ON 4L VIA NC, SATTING 91-94%. PT REFUSED TO WEAR HIS CPAP D/T THE BLOOD CLOTS IN HIS NOSE. PT WAS MEDICATED WITH PRN TYLENOL FOR BACK PAIN, AND TESSALON PERLES FOR COUGH. NO C/O NAUSEA. TELE SHOWED NSR IN THE 90S. VITAL SIGNS STABLE. NO OTHER ACUTE CHANGES IN PT CONDITION NOTED DURING THE NIGHT. WILL CONTINUE TO MONITOR AND TREAT PER EMAR UNTIL HAND OFF TO DAY SHIFT RN.
--- NOTE | 2021-06-05 09:00 | NUR ---
PT PLEASANT COOP A/O, CONCRETE. H/R REG, NO MURMER NOTED. PER TLE NSR AT 85. LUNGS CLEAR ON LEFT, DIM ON RT UP AND LOW. ON 4L O2. PT STATES IS 3L AT HOME. RESP EASY, UNLABORED. BT X4 LAST BM TODAY. LOOSE, WILL HOLD STOOL SOFT THIS AM. VOIDS URNINAL. NO NEW CONCERNS NOTED. BED IN LOW POSITION, CALL LITE IN REACH. CALLS APPROP
--- NOTE | 2021-06-05 12:46 | NUR ---
Spiritual care visit conducted. Patient is sitting on EOB and alert. Patient states that he is a very social person and he feels isolated so I spend an hour with patient as he lights up telling stories of his childhood, his father and his father's many talents. Patient also talks about his love for adventure and shares about his many adventures in life. He talks about holiness having no place in his world and that there is strength for him in it. I encourage him in his self care and the importance of staying full of the things that energize him for his health battles. I provide therapeutic listening, companionship and anxiety containment. Patient voices that he finds yennifer in sharing his adventures and their stories and that he appreiciates the visit. I will continue to remain available to patient and family.
[2021-06-05 12:50] LABS: Vancomycin, Trough 16.9 ug/mL (5.0-10.0)
--- NOTE | 2021-06-05 15:07 | NUR ---
DR RODRIGUEZ IN. WILL NOT BE PULLING DRAIN AT THIS TIME. ON XARELTO. HIGH BLEEDING RISK. DR RODRIGUEZ PULLED DRESSING OFF. REQUESTED REPLACE DSG. DONE.
--- NOTE | 2021-06-05 18:44 | NUR ---
PT PLEASANT TODAY. QUITE TALKATIVE. NO C/O PAIN . DR RODRIGUEZ IN AND REMOVED DRESSING ON CHEST PLEUREX DRAIN, REQUESTED WE REPLACE. DONE WITH CONSERVATION OFFICER ASST. PT SPOUSE IN TO VISIT THIS AFT. NO NEW CONCERNS NOTED TODAY. BED IN LOW POSITION,C ALL LITE IN REAC, CALLS APPROP
[2021-06-06 05:13] LABS: BASOPHILS ABSOLUTE AUTO 0.04 K/mm3 (0.00-0.23); BASOPHILS PERCENT AUTO 0 % (0-2); EOSINOPHILS ABSOLUTE AUTO 0.02 K/mm3 (0.00-0.68); EOSINOPHILS PERCENT AUTO 0 % (0-6); Hematocrit 22.2 % (37.0-53.0); Hemoglobin 6.8 g/dL (13.5-17.5); IMMATURE GRAN ABSOLUTE AUTO 0.33 K/mm3 (0.00-0.10); IMMATURE GRAN PERCENT AUTO 3 % (0-1); LYMPHOCYTES ABSOLUTE AUTO 1.31 K/mm3 (0.84-5.20); LYMPHOCYTES PERCENT AUTO 12 % (21-46); MONOCYTES PERCENT AUTO 5 % (4-13); Mean Corpuscular HGB Conc 30.6 g/dL (31.5-36.5); Mean Corpuscular Volume 91 fL (80-100); Mean Platelet Volume 11.1 fL (9.1-12.4); NEUTROPHILS ABSOLUTE AUTO 8.97 K/mm3 (1.96-9.15); NEUTROPHILS PERCENT AUTO 80 % (41-73); Platelet Count 175 K/mm3 (150-400); RDW Coefficient Variation 19.2 % (11.7-14.2); RDW Standard Deviation 64.6 fL (35.1-46.3); Red Blood Cell Count 2.43 M/mm3 (4.30-5.90); White Blood Cell Count 11.27 K/mm3 (4.00-11.30)
[2021-06-06 05:34] LABS: Albumin, Blood 1.9 g/dL (3.4-5.0); Anion Gap 5 mmol/L (6-16); Blood Urea Nitrogen 13 mg/dL (8-24); Bun/Creatinine Ratio 13.2 (12.0-20.0); CO2, Blood 30 mmol/L (21-32); Calcium, Blood 7.7 mg/dL (8.5-10.1); Chloride, Blood 106 mmol/L (98-108); Creatinine, Blood 0.99 mg/dL (0.60-1.20); Glomerular Filtration Rate >60 (60-); Glucose, Blood 154 mg/dL (70-99); Phosphorus, Blood 2.2 mg/dL (2.5-4.9); Potassium, Blood 3.3 mmol/L (3.5-5.5); Sodium, Blood 141 mmol/L (136-145)
--- NOTE | 2021-06-06 06:25 | NUR ---
SHIFT SUMMARY PT IS A 66 Y/O MALE, ADMITTED WITH SEPSIS R/T PNA. HE IS A&O X 3, FORGETFUL AND ANXIOUS AT TIMES. 1PA TO BSC. PT DID REPORT ONE UNWITNESSED NOSEBLEED DURING THE NIGHT. HE WAS MEDICATED FOR MILD PAIN WITH PRN TYLENOL. NO S/O NAUSEA OR SOB. PT IS ON 4L O2 VIA NC. VITAL SIGNS STABLE. PLEUREX DRAIN AND DRESSING IN PLACE. NO ACUTE CHANGES IN PT CONDITION NOTED DURING THE NIGHT. WILL CONTINUE TO MONITOR AND TREAT PER EMAR UNTIL HAND OFF TO DAY SHIFT RN.
--- NOTE | 2021-06-06 17:50 | NUR ---
PT PLEASANT TODAY, DID RECEIVE 1 UNIT PRBC TODAY. THIS MADE SOME DELAY ON VANCO. DID DISCUSS WITH PHA. THEY OKAY WITH TIMING DISCUSSED AND WITH NORMAL DOSAGE WHEN NEXT DUE WITH NO CHANGES. PT IN TO VISIT TODAY. NO NEW CONCERNS NOTED TODAY. BED INLOW POSITION, CALL LITE IN REACH, CALLS APPROP
--- NOTE | 2021-06-06 19:20 | NUR ---
DARK TARRY STOOL NOTED. GUIAC ORDERED PER DR ANAYA
[2021-06-06 20:52] LABS: Stool Occult Blood Guaiac 1 Neg (Neg)
--- NOTE | 2021-06-07 04:17 | NUR ---
SUMMARY NO NEW ISSUES NOTED. PT REPORTS CONTINUED SOB W/EXERTION. PT STATES HAS ONGOING ANXIOUS MOMENTS. PT ABLE TO SLEEP DURING SHIFT. PT CURRENTLY AWAKE IN NO DISTRESS. CALL LIGHT IN REACH.
[2021-06-07 04:56] LABS: Hematocrit 24.3 % (37.0-53.0); Hemoglobin 7.6 g/dL (13.5-17.5); Mean Corpuscular HGB 27.9 pg (26.0-34.0); Mean Corpuscular HGB Conc 31.3 g/dL (31.5-36.5); Mean Corpuscular Volume 89 fL (80-100); Mean Platelet Volume 10.6 fL (9.1-12.4); NRBC ABSOLUTE 0.02 K/mm3 (0.00-0.02); NRBC Auto 0.1 /100 WBC (0.0-0.2); Platelet Count 204 K/mm3 (150-400); RDW Coefficient Variation 20.4 % (11.7-14.2); RDW Standard Deviation 65.1 fL (35.1-46.3); Red Blood Cell Count 2.72 M/mm3 (4.30-5.90); White Blood Cell Count 14.42 K/mm3 (4.00-11.30)
[2021-06-07 05:18] LABS: Alanine Aminotransfer (ALT/SGP 110 U/L (12-78); Albumin, Blood 1.9 g/dL (3.4-5.0); Albumin/Globulin Ratio 0.5 (0.8-1.8); Alk Phos 231 U/L (50-136); Anion Gap 4 mmol/L (6-16); Aspartate Aminotrans (AST/SGOT 48 U/L (12-37); Bilirubin, Total 0.7 mg/dL (0.1-1.0); Blood Urea Nitrogen 11 mg/dL (8-24); CO2, Blood 30 mmol/L (21-32); Calcium, Blood 7.9 mg/dL (8.5-10.1); Chloride, Blood 107 mmol/L (98-108); Globulin, Blood 3.8 g/dL (2.2-4.0); Glomerular Filtration Rate >60 (60-); Glucose, Blood 99 mg/dL (70-99); Magnesium, Blood 1.6 mg/dL (1.6-2.4); Potassium, Blood 3.6 mmol/L (3.5-5.5); Sodium, Blood 141 mmol/L (136-145); Total Protein, Blood 5.7 g/dL (6.4-8.2)
[2021-06-07 12:40] LABS: Vancomycin, Trough 14.8 ug/mL (5.0-10.0)
--- NOTE | 2021-06-07 16:51 | NUR ---
SHIFT SUMMARY PT A/O X4; PLEASANT AND COOPERATIVE WITH CARE. IS CURRENTLY ON 4 LITERS O2 AND IND IN THE ROOM. PT REPORTS THAT HIS APPETITE HAS INCREASED AND THAT HE HAS HAD ANOTHER DARK STOOL. PREVIOUS STOOL SAMPLE CAME BACK NEGATIVE FOR BLOOD. ANOTHER STOOL SAMPLE IS TO BE COLLECTED. NO OTHER COMPLAINTS THIS SHIFT. VSS. WILL REPORT TO GAYLE PRETTY.
--- NOTE | 2021-06-07 17:33 | NUR ---
Initial palliative care consult: Cornelio is a 66 year old with a history of stage IV cancer of [place] diagnosed in February of 2021. He is currently on chemo treatments for the cancer. He also has a history of HTN, TAYE, DM, hyperlipidemia and PE. He is on xarelto. Cornelio was admitted on 05/31/21 with pneumonia. He reports this is his third hospital admission since his cancer diagnosis on February. He has a and young son, Clive, who is 16. He has adult children from a previous relationship. He retired from the [employer] department a little over a year ago. He states that his cancer diagnosis has not allowed him to enjoy the things he wanted to do in his senior care, which is to calles and fish. He reports that he is quite fatigued and isn't able to work on projects around his home. He reports a history of chronic headaches for many years. He states that he doesn't like to take narcotics unless he has too. He did report that he took roxinol a few days ago and it helped a great deal with his pain and he got some rest. He has no complaints during the visit except that he wishes that he would be able to go home soon. He reports he sees Dr. Bermeo for his oncologist and would like to continue treatments at this time. He has a pleurx drain that he would llike to have removed, however the doctor recommended that removing it now would have bleeding risks from his anticoagulation. He expresses interest in getting a mediport for continued treatment when he is able to. He states that it is his wish to continue with treatments. He is a limited code (no CPR, intubation ok) and has an AD on file from February 2021. He states he has a "much younger and son to live for." He maintains a positive attitude despite his current health issues. Most of the visit was allowing Cornelio to talk about his life, his work, his, family and his plans for senior care. Emotional support provided. He states "I like to talk." PC will continue to visit for assistance with symptom managment and continued advanced care planning as needed.
[2021-06-08 03:45] LABS: Stool Occult Blood Guaiac 1 Neg (Neg)
--- NOTE | 2021-06-08 04:38 | NUR ---
SUMMARY PT HAD NOTED FEVER. PT TX W/ TYLENOL AND COOLING MEASURES. FEVER RESOLVED. PT HAD A NOTED NOSE BLEED. BLEEDING CONTROLLED. PT SLEPT OFF AND ON. PT CURRENTLY AWAKE AND IN NO DISTRESS. CALL LIGHT IN REACH.
[2021-06-08 10:55] LABS: Hematocrit 23.5 % (37.0-53.0); Hemoglobin 7.2 g/dL (13.5-17.5); Mean Corpuscular HGB 27.5 pg (26.0-34.0); Mean Corpuscular HGB Conc 30.6 g/dL (31.5-36.5); Mean Corpuscular Volume 90 fL (80-100); Mean Platelet Volume 10.7 fL (9.1-12.4); Platelet Count 263 K/mm3 (150-400); RDW Coefficient Variation 19.9 % (11.7-14.2); RDW Standard Deviation 65.1 fL (35.1-46.3); Red Blood Cell Count 2.62 M/mm3 (4.30-5.90); White Blood Cell Count 14.58 K/mm3 (4.00-11.30)
[2021-06-08 11:16] LABS: Alanine Aminotransfer (ALT/SGP 88 U/L (12-78); Albumin, Blood 1.9 g/dL (3.4-5.0); Albumin/Globulin Ratio 0.5 (0.8-1.8); Alk Phos 234 U/L (50-136); Anion Gap 4 mmol/L (6-16); Aspartate Aminotrans (AST/SGOT 28 U/L (12-37); Bilirubin, Total 0.5 mg/dL (0.1-1.0); Blood Urea Nitrogen 11 mg/dL (8-24); Bun/Creatinine Ratio 10.9 (12.0-20.0); CO2, Blood 30 mmol/L (21-32); Calcium, Blood 8.2 mg/dL (8.5-10.1); Chloride, Blood 105 mmol/L (98-108); Creatinine, Blood 1.01 mg/dL (0.60-1.20); Globulin, Blood 4.1 g/dL (2.2-4.0); Glomerular Filtration Rate >60 (60-); Glucose, Blood 182 mg/dL (70-99); Potassium, Blood 3.7 mmol/L (3.5-5.5); Sodium, Blood 139 mmol/L (136-145)
--- NOTE | 2021-06-08 14:11 | NUR ---
PT HAS BEEN INDEPENDENT IN THE ROOM. PAIN MANAGED WITH TYLENOL. TOLERATING PO. VSS, HR SLIGHTLY ELEVATED THIS SHIFT. REPORT GIVEN TO BRENDON PRETTY.
--- NOTE | 2021-06-08 19:20 | NUR ---
a+o,sitting up in bed, afebrile, call light in reach, rm air, abx infusing with no s/sx of infection or infiltration, report shared with returning noc nurse
--- NOTE | 2021-06-09 04:42 | NUR ---
SUMMARY NO ISSUES NOTED THIS SHIFT. NO FEVERS OR NOSEBLEEDS. PT HAS SLEPT OFF AND ON DURING SHIFT. PT CURRENTLY SLEEPING IN NO DISTRESS. CALL LIGHT IN REACH.
[2021-06-09 06:11] LABS: Hematocrit 23.1 % (37.0-53.0); Hemoglobin 7.2 g/dL (13.5-17.5); Mean Corpuscular HGB Conc 31.2 g/dL (31.5-36.5); Mean Corpuscular Volume 90 fL (80-100); Mean Platelet Volume 10.2 fL (9.1-12.4); Platelet Count 287 K/mm3 (150-400); RDW Coefficient Variation 19.9 % (11.7-14.2); RDW Standard Deviation 64.6 fL (35.1-46.3); Red Blood Cell Count 2.57 M/mm3 (4.30-5.90); White Blood Cell Count 15.21 K/mm3 (4.00-11.30)
[2021-06-09 06:31] LABS: Alanine Aminotransfer (ALT/SGP 81 U/L (12-78); Albumin, Blood 1.9 g/dL (3.4-5.0); Albumin/Globulin Ratio 0.4 (0.8-1.8); Alk Phos 257 U/L (50-136); Anion Gap 4 mmol/L (6-16); Aspartate Aminotrans (AST/SGOT 29 U/L (12-37); Bilirubin, Total 0.6 mg/dL (0.1-1.0); Blood Urea Nitrogen 12 mg/dL (8-24); Bun/Creatinine Ratio 13.2 (12.0-20.0); CO2, Blood 29 mmol/L (21-32); Calcium, Blood 8.1 mg/dL (8.5-10.1); Chloride, Blood 106 mmol/L (98-108); Creatinine, Blood 0.91 mg/dL (0.60-1.20); Globulin, Blood 4.4 g/dL (2.2-4.0); Glomerular Filtration Rate >60 (60-); Glucose, Blood 104 mg/dL (70-99); Potassium, Blood 3.6 mmol/L (3.5-5.5); Sodium, Blood 139 mmol/L (136-145); Total Protein, Blood 6.3 g/dL (6.4-8.2)
--- NOTE | 2021-06-09 15:45 | NUR ---
Patient is sitting on a chair and resting. He awakens quickly when I enter pt rm. In my visits with the patient both in prior visits and this admssion, this day was the first time patient has been in a low emotional/spiritual state. Patient expresses his frustration with his symptoms and how "annoying and painful it all is." He says that he is not focussing on the negative but then he refutes attemts to look beyond how bad it feels. I sit with him in this tension and normalize the fears and frustrations. I provide companionship and a calming presence. Patient responds well and shows signs of an elevated perspective. I will continue to asssist patient in reflecting on his process and ways to work through the issues of living in disease.
--- NOTE | 2021-06-09 17:36 | NUR ---
SHIFT SUMMARY- PT IS A/O, PLESANT AND COOPERATIVE. HE IS EATING AND DRINKING WELL. HE IS AMBULATING TO THE RESTROOM. HE SLEPT INTERMITENTLY DURING THIS SHIFT. HIS BED IS IN THE LOW POSITION AND CALL LIGHT IS WITHIN REACH.
--- NOTE | 2021-06-09 21:49 | NUR ---
2015 PT LYING IN BED, REPORTS HEADACHE, GAVE ROXANOL, WILL EVAL FOR EFFECT. NO OTHER APPARENT SIGNS OF DISTRESS. CALL LIGHT IS IN REACH.
--- NOTE | 2021-06-10 00:38 | NUR ---
06/09/21 2330 PT LYING IN BED, EYES CLOSED, APPEARS TO BE RESTING. BREATHING IS EVEN, UNLABORED. NO APPARENT SIGNS OF DISTRESS. CALL LIGHT IS IN REACH.
[2021-06-10 06:30] LABS: Hematocrit 22.3 % (37.0-53.0); Hemoglobin 6.8 g/dL (13.5-17.5); Mean Corpuscular HGB 27.8 pg (26.0-34.0); Mean Corpuscular HGB Conc 30.5 g/dL (31.5-36.5); Mean Corpuscular Volume 91 fL (80-100); Mean Platelet Volume 11.1 fL (9.1-12.4); Platelet Count 333 K/mm3 (150-400); RDW Coefficient Variation 19.6 % (11.7-14.2); RDW Standard Deviation 63.6 fL (35.1-46.3); Red Blood Cell Count 2.45 M/mm3 (4.30-5.90); White Blood Cell Count 19.64 K/mm3 (4.00-11.30)
--- NOTE | 2021-06-10 06:32 | NUR ---
0200 PT LYING IN BED, EYES CLOSED, APPEARS TO BE RESTING. BREATHING IS EVEN, UNLABORED. NO APPARENT SIGNS OF DISTRESS. CALL LIGHT IS IN REACH. 0413 PT LYING IN BED, REPORTS HEARTBURN, GOT RANCHO MIST AND GAVE PROTONIX EARLY. WILL EVAL FOR EFFECT. NO OTHER APPARENT SIGNS OF DISTRESS. CALL LIGHT IS IN REACH.
--- NOTE | 2021-06-10 06:33 | NUR ---
PT IS AAO X 4, ON 4L NC HUMIDIFIED. DRY COUGH. REPORTED A HEADACHE, GOT ROXANOL X 1.
--- NOTE | 2021-06-10 06:34 | NUR ---
PT LYING IN BED, EYES CLOSED, APPEARS TO BE RESTING. BREATHING IS EVEN, UNLABORED. NO APPARENT SIGNS OF DISTRESS. CALL LIGHT IS IN REACH. NO OTHER CHANGES THIS SHIFT.
[2021-06-10 06:46] LABS: Alanine Aminotransfer (ALT/SGP 70 U/L (12-78); Albumin, Blood 1.9 g/dL (3.4-5.0); Albumin/Globulin Ratio 0.4 (0.8-1.8); Alk Phos 224 U/L (50-136); Anion Gap 7 mmol/L (6-16); Aspartate Aminotrans (AST/SGOT 19 U/L (12-37); Bilirubin, Total 0.4 mg/dL (0.1-1.0); Blood Urea Nitrogen 19 mg/dL (8-24); Bun/Creatinine Ratio 20.2 (12.0-20.0); CO2, Blood 26 mmol/L (21-32); Calcium, Blood 8.6 mg/dL (8.5-10.1); Chloride, Blood 105 mmol/L (98-108); Creatinine, Blood 0.94 mg/dL (0.60-1.20); Globulin, Blood 4.4 g/dL (2.2-4.0); Glomerular Filtration Rate >60 (60-); Glucose, Blood 288 mg/dL (70-99); Potassium, Blood 4.1 mmol/L (3.5-5.5); Sodium, Blood 138 mmol/L (136-145); Total Protein, Blood 6.3 g/dL (6.4-8.2)
--- NOTE | 2021-06-10 15:18 | NUR ---
Spiritual care visit conducted. Patient is in much better spirits today. He is able to find humor in his circumstances and things to celebrate in his day. He shares more stories of the things and people he values the most. He is eager to go home yet fearful to leave all the medical support he has in the hospital. I provide companionship, therapeutic listening and a calming presence. Patient responds well and shows signs of an elevated mood. Spiritual care will continue to help alumni relations manager the social and spiritual needs of patient.
[2021-06-10] MEDS ORDERED: OXYM.05NI (15:23)
[2021-06-10] MEDS ORDERED: LEVFLO500 PO (15:23)
[2021-06-10] MEDS ORDERED: MIRALAX17 GM PO (15:24)
[2021-06-10] MEDS ORDERED: SENN187 PO (15:24)
[2021-06-10] MEDS ORDERED: VISBIOME 112.51 EACH PO (15:25)
[2021-06-10] MEDS ORDERED: PRED20 PO (15:26)
[2021-06-10 16:10] LABS: Hematocrit 26.4 % (37.0-53.0); Hemoglobin 8.3 g/dL (13.5-17.5); Mean Corpuscular HGB 28.2 pg (26.0-34.0); Mean Corpuscular HGB Conc 31.4 g/dL (31.5-36.5); Mean Corpuscular Volume 90 fL (80-100); Mean Platelet Volume 10.7 fL (9.1-12.4); Platelet Count 356 K/mm3 (150-400); RDW Coefficient Variation 18.8 % (11.7-14.2); RDW Standard Deviation 61.3 fL (35.1-46.3); Red Blood Cell Count 2.94 M/mm3 (4.30-5.90); White Blood Cell Count 23.42 K/mm3 (4.00-11.30)
[2021-06-10 16:44] LABS: Alanine Aminotransfer (ALT/SGP 89 U/L (12-78); Albumin, Blood 1.9 g/dL (3.4-5.0); Albumin/Globulin Ratio 0.4 (0.8-1.8); Alk Phos 229 U/L (50-136); Anion Gap 4 mmol/L (6-16); Aspartate Aminotrans (AST/SGOT 42 U/L (12-37); Bilirubin, Total 0.5 mg/dL (0.1-1.0); Blood Urea Nitrogen 18 mg/dL (8-24); Bun/Creatinine Ratio 20.8 (12.0-20.0); CO2, Blood 27 mmol/L (21-32); Calcium, Blood 8.4 mg/dL (8.5-10.1); Chloride, Blood 106 mmol/L (98-108); Creatinine, Blood 0.87 mg/dL (0.60-1.20); Globulin, Blood 4.7 g/dL (2.2-4.0); Glomerular Filtration Rate >60 (60-); Glucose, Blood 341 mg/dL (70-99); Potassium, Blood 4.3 mmol/L (3.5-5.5); Sodium, Blood 137 mmol/L (136-145); Total Protein, Blood 6.6 g/dL (6.4-8.2)
--- NOTE | 2021-06-10 18:25 | NUR ---
PT DISCHARGED FROM THE UNIT. MEDICATIONS FAXED TO PHARMACY. DISCHARGE INSTRUCTIONS REVIEWED. POWERGLIDE LEFT IN INCASE PT REQUIRES FURTHER BLOOD TRANSFUSIONS. HE WAS INSTRUCTED TO FOLLOW UP WITH HIS PRIMARY CARE PROVIDER AND ONCOLOGIST.
== END 2021-06-10 18:07 | disposition home or self-care (01) | DRG 871 ==
LOC: ER 19:33 → MEDS 22:13
PROVIDERS: Internal Medicine; Pharmacist; Physician Assistant; ADMIT Internal Medicine
PROC: 5A09357 Assistance with Respiratory Ventilation, Less than 24 Consecutive Hours, Continuous Positive Airway Pressure (ICD-10-PCS; principal; 2021-05-31)
PROC: 30233N1 Transfusion of Nonautologous Red Blood Cells into Peripheral Vein, Percutaneous Approach (ICD-10-PCS; 2021-05-31)
DX: A41.9 Sepsis, unspecified organism (principal); J18.9 Pneumonia, unspecified organism; I26.99 Other pulmonary embolism without acute cor pulmonale; C78.00 Secondary malignant neoplasm of unspecified lung; I82.619 Acute embolism and thrombosis of superficial veins of unspecified upper extremity; Z66 Do not resuscitate; D62 Acute posthemorrhagic anemia; J44.0 Chronic obstructive pulmonary disease with (acute) lower respiratory infection; J96.11 Chronic respiratory failure with hypoxia; D84.821 Immunodeficiency due to drugs; J91.0 Malignant pleural effusion; Z20.822 Contact with and (suspected) exposure to COVID-19; C80.1 Malignant (primary) neoplasm, unspecified; E87.6 Hypokalemia; R51.9 Headache, unspecified; E87.70 Fluid overload, unspecified; E78.5 Hyperlipidemia, unspecified; E83.39 Other disorders of phosphorus metabolism; D63.0 Anemia in neoplastic disease; G47.33 Obstructive sleep apnea (adult) (pediatric); D50.9 Iron deficiency anemia, unspecified; E11.22 Type 2 diabetes mellitus with diabetic chronic kidney disease; I12.9 Hypertensive chronic kidney disease with stage 1 through stage 4 chronic kidney disease, or unspecified chronic kidney disease; Z90.49 Acquired absence of other specified parts of digestive tract; Z98.890 Other specified postprocedural states; Z79.899 Other long term (current) drug therapy; Z99.81 Dependence on supplemental oxygen; Z87.891 Personal history of nicotine dependence; Z79.52 Long term (current) use of systemic steroids; Z92.21 Personal history of antineoplastic chemotherapy
CPT/HCPCS: 36415; 36430; 71045; 71046; 71260; 80053; 80069; 80202; 82270; 82272; 82330; 82607; 82728; 82746; 83540; 83550; 83605; 83735; 83880; 84145; 85014; 85018; 85025; 85027; 85610; 85651; 85730; 86140; 86850; 86900; 86901; 86923; 87040; 93005; 93010; 93971; 94760; 96365; 96367; 97110; 97161; 97166; 97530; 99285-25; A9270; C1751; J0456; J0610; J1940; J2405; J2543; J2930; J3370; J3475; J7030; J7040; J7050; P9016; Q9967

== ENCOUNTER 2021-06-18 08:43 | Day surgery (SDC) | payer OTHER ==
[~2021-06-18 08:43] MED LIST changes: +BENZ100A PO; +CATAPRES0.1 MG PO; +LEVFLO500 PO; +MIRALAX17 GM PO; +OXYM.05NI; +SENN187 PO; +XARELTO20 MG PO
== END 2021-06-18 09:11 | disposition home or self-care (01) ==
LOC: ATC 08:43
DX: Z45.2 Encounter for adjustment and management of vascular access device (principal); A41.9 Sepsis, unspecified organism; I26.99 Other pulmonary embolism without acute cor pulmonale; J96.11 Chronic respiratory failure with hypoxia; I10 Essential (primary) hypertension; E78.5 Hyperlipidemia, unspecified; C34.90 Malignant neoplasm of unspecified part of unspecified bronchus or lung; E11.9 Type 2 diabetes mellitus without complications; G47.33 Obstructive sleep apnea (adult) (pediatric); Z99.81 Dependence on supplemental oxygen; Z79.01 Long term (current) use of anticoagulants; Z87.891 Personal history of nicotine dependence
CPT/HCPCS: 99211

== ENCOUNTER 2021-06-26 07:30 | Day surgery (SDC) | payer OTHER ==
[2021-06-26] MEDS ORDERED: LEVFLO500 (15:15)
== END 2021-06-26 15:28 | disposition home or self-care (01) ==
LOC: ATC 07:30
DX: C34.90 Malignant neoplasm of unspecified part of unspecified bronchus or lung (principal); I10 Essential (primary) hypertension; G47.33 Obstructive sleep apnea (adult) (pediatric); E78.5 Hyperlipidemia, unspecified; E11.9 Type 2 diabetes mellitus without complications
CPT/HCPCS: 99212

== ENCOUNTER 2021-07-16 01:12 | Day surgery (SDC) | payer OTHER ==
[~2021-07-16 01:12] MED LIST changes: +LEVFLO500
== END 2021-07-16 10:30 | disposition home or self-care (01) ==
LOC: ATC 01:12
DX: D64.9 Anemia, unspecified (principal); C34.81 Malignant neoplasm of overlapping sites of right bronchus and lung; Z87.891 Personal history of nicotine dependence; I10 Essential (primary) hypertension; G47.33 Obstructive sleep apnea (adult) (pediatric); E78.5 Hyperlipidemia, unspecified; E11.9 Type 2 diabetes mellitus without complications; Z86.711 Personal history of pulmonary embolism
CPT/HCPCS: 36415; 36430; 86850; 86900; 86901; 86923; J7050; P9016

== ENCOUNTER 2021-07-23 08:30 | Day surgery (SDC) | payer OTHER ==
[~2021-07-23] VITALS: Ht 177.8 cm; Wt 75.0 kg
--- NOTE | 2021-07-23 11:35 | NUR ---
ASSUMED CARE OF PT. PT IS SITTING UP IN CHAIR, NO S/S OF DISTRESS. PT IS DROWSY, BUT CONVERSING APPROPRIATELY; REPORTS R FLANK PAIN MINIMAL AFTER TUBE REMOVAL. MONITOR SR 80'S, B/P 111/56, SPO2 95% 4L NC. PT IS 02 DEPENDENT AT HOME, DENIES SOB POST PROCEDURE. R FLANK NO SWELLING/HEMATOMA, TEGADERM DRSG INTACT. PT TAKING SIPS OF FLUID WITHOUT ISSUE.
--- NOTE | 2021-07-23 12:15 | NUR ---
PT TOOK LUNCH WITHOUT ISSUE, CONTINUES TO REPORT MIN DISCOMFORT AT R [facility] SITE.
--- NOTE | 2021-07-23 12:40 | NUR ---
PT DRESSED SELF WITH MIN ASSISTANCE, SITE UNCHANGED; IV REMOVED-CANNULA INTACT.
--- NOTE | 2021-07-23 12:55 | NUR ---
PT RECEIVED DISCHARGE INSTRUCTIONS, MED LIST AND AFTER CARE INSTRUCTIONS; VERBALIZED GOOD UNDERSTANDING.
--- NOTE | 2021-07-23 13:03 | NUR ---
PT LEFT FACILITY VIA W/C, CONDITION STABLE.
== END 2021-07-23 13:03 | disposition home or self-care (01) ==
LOC: MHTC 08:30
PROC: 0WPB03Z Removal of Infusion Device from Left Pleural Cavity, Open Approach (ICD-10-PCS; principal; 2021-07-23)
DX: Z46.82 Encounter for fitting and adjustment of non-vascular catheter (principal); C78.00 Secondary malignant neoplasm of unspecified lung; R18.0 Malignant ascites; C79.89 Secondary malignant neoplasm of other specified sites; I10 Essential (primary) hypertension; E11.9 Type 2 diabetes mellitus without complications; J98.4 Other disorders of lung; E78.5 Hyperlipidemia, unspecified; Z86.711 Personal history of pulmonary embolism; Z86.718 Personal history of other venous thrombosis and embolism; Z87.891 Personal history of nicotine dependence; Z79.899 Other long term (current) drug therapy; Z79.01 Long term (current) use of anticoagulants; Z87.01 Personal history of pneumonia (recurrent); Z20.822 Contact with and (suspected) exposure to COVID-19
CPT/HCPCS: 99152; 99153; J1644; J2250; J2270; J7030; J7050

== ENCOUNTER 2021-08-01 21:24 | Inpatient (IN) | payer OTHER ==
[~2021-08-01] VITALS: Ht 177.8 cm; Wt 74.0 kg
[2021-08-01 21:46] LABS: BASOPHILS ABSOLUTE AUTO 0.06 K/mm3 (0.00-0.23); BASOPHILS PERCENT AUTO 0 % (0-2); EOSINOPHILS ABSOLUTE AUTO 0.05 K/mm3 (0.00-0.68); EOSINOPHILS PERCENT AUTO 0 % (0-6); Hematocrit 24.7 % (37.0-53.0); Hemoglobin 7.3 g/dL (13.5-17.5); IMMATURE GRAN ABSOLUTE AUTO 0.12 K/mm3 (0.00-0.10); IMMATURE GRAN PERCENT AUTO 1 % (0-1); LYMPHOCYTES ABSOLUTE AUTO 0.83 K/mm3 (0.84-5.20); LYMPHOCYTES PERCENT AUTO 5 % (21-46); MONOCYTES ABSOLUTE AUTO 1.03 K/mm3 (0.16-1.47); MONOCYTES PERCENT AUTO 7 % (4-13); Mean Corpuscular HGB 23.9 pg (26.0-34.0); Mean Corpuscular HGB Conc 29.6 g/dL (31.5-36.5); Mean Corpuscular Volume 81 fL (80-100); Mean Platelet Volume 10.4 fL (9.1-12.4); NEUTROPHILS ABSOLUTE AUTO 13.65 K/mm3 (1.96-9.15); NEUTROPHILS PERCENT AUTO 87 % (41-73); Platelet Count 342 K/mm3 (150-400); RDW Coefficient Variation 18.4 % (11.7-14.2); RDW Standard Deviation 53.8 fL (35.1-46.3); Red Blood Cell Count 3.05 M/mm3 (4.30-5.90); White Blood Cell Count 15.74 K/mm3 (4.00-11.30)
[2021-08-01 22:05] LABS: Alanine Aminotransfer (ALT/SGP 91 U/L (12-78); Albumin, Blood 1.9 g/dL (3.4-5.0); Albumin/Globulin Ratio 0.3 (0.8-1.8); Alk Phos 278 U/L (50-136); Anion Gap 5 mmol/L (6-16); Aspartate Aminotrans (AST/SGOT 62 U/L (12-37); Bilirubin, Total 0.9 mg/dL (0.1-1.0); Blood Urea Nitrogen 15 mg/dL (8-24); Bun/Creatinine Ratio 14.2 (12.0-20.0); CO2, Blood 30 mmol/L (21-32); Calcium, Blood 8.6 mg/dL (8.5-10.1); Chloride, Blood 99 mmol/L (98-108); Creatinine, Blood 1.06 mg/dL (0.60-1.20); Globulin, Blood 6.8 g/dL (2.2-4.0); Glomerular Filtration Rate >60 (60-); Glucose, Blood 142 mg/dL (70-99); Potassium, Blood 4.5 mmol/L (3.5-5.5); Sodium, Blood 134 mmol/L (136-145); Total Protein, Blood 8.7 g/dL (6.4-8.2)
[2021-08-02 00:58] LABS: Source, Urine Clean Catch
[2021-08-02 01:03] LABS: Appearance, Urine Clear (Clear); Bilirubin, Urine Neg (Neg); Blood, Urine 1+ (Neg); Color, Urine Amber (P-Yellow); Glucose Qualitative, Urine Neg (Neg); Ketones, Urine Neg (Neg); Leukocyte Esterase, Urine 1+ (Neg); Nitrite, Urine Neg (Neg); Protein, Urine 1+ (Neg); Urobilinogen, Urine 2+ (Normal); pH, Urine 6.5 (5.0-8.0)
[2021-08-02 01:08] LABS: Red Blood Cells, Urine 0-2 /hpf (0-2); Squamous Epithelial Cells Few /hpf (Few)
[2021-08-02 01:09] LABS: Bacteria Few /hpf; Hyaline Casts 0-2 /lpf (0-2); Mucus Light (0-Heavy)
[2021-08-02 03:37] LABS: SARS-Cov-2 (COVID-19) PCR, MMC NEGATIVE (NEGATIVE)
--- NOTE | 2021-08-02 04:40 | NUR ---
PT HERE [place]IA [place] FROM ER. PT IS VERY HIGH ANXIETY - SCREAMING OUT "I AM COLD." "I CAN'T DO THIS." "GET ME OUT OF HERE." "I CAN'T TURN." PT TRANSFERRED WITH 4 STAFF TO PCU BED FROM [facility]. REPOSITIONED IN BED FOR COMFORT. OXYGEN AT 6L - PT REMINDED TO TAKE DEEP BREATHS - SATS MID 80'S TO LOW 90'S. PLACED ON 10L OXIMYZER - CONTINUOUS BIOX PLACED ON. TELE PLACED ON - PT SINUS TACH, PER ELLEN MT. PROVIDED BLANKETS FOR COMFORT. REVIEWED CALL LIGHT. I CONTACTED PT'S DONI TO ASSIST WITH ADMIT DUE TO PT'S ANXIETY LEVEL. PT HAS STAGE IV LUNG CANCER, DUSKY SKIN, JAUNDICED EYES. PT STARTED TO DRIFT OFF TO SLEEP AT THE END OF THE ASSESSMENT. RN IN ROOM FOR 1 HOUR, PT'S ANXIETY WAS VERY HIGH WITH ANY MOVEMENT, OR TOUCH, AND STATING "I CAN'T ANSWER THAT OR I DON'T REMEMBER." CALL LIGHT IN REACH. PAS ON. BED ALARM ON.
[2021-08-02] MEDS ORDERED: MORP15ER PO ×2 (04:47→04:48)
[2021-08-02 05:14] LABS: BASOPHILS ABSOLUTE AUTO 0.04 K/mm3 (0.00-0.23); BASOPHILS PERCENT AUTO 0 % (0-2); EOSINOPHILS ABSOLUTE AUTO 0.04 K/mm3 (0.00-0.68); EOSINOPHILS PERCENT AUTO 0 % (0-6); Hematocrit 25.2 % (37.0-53.0); Hemoglobin 7.3 g/dL (13.5-17.5); IMMATURE GRAN PERCENT AUTO 1 % (0-1); LYMPHOCYTES PERCENT AUTO 5 % (21-46); MONOCYTES ABSOLUTE AUTO 0.98 K/mm3 (0.16-1.47); MONOCYTES PERCENT AUTO 5 % (4-13); Mean Corpuscular HGB 24.1 pg (26.0-34.0); Mean Corpuscular Volume 83 fL (80-100); Mean Platelet Volume 10.8 fL (9.1-12.4); NEUTROPHILS PERCENT AUTO 89 % (41-73); Platelet Count 339 K/mm3 (150-400); RDW Coefficient Variation 18.4 % (11.7-14.2); RDW Standard Deviation 55.3 fL (35.1-46.3); Red Blood Cell Count 3.03 M/mm3 (4.30-5.90); White Blood Cell Count 19.76 K/mm3 (4.00-11.30)
[2021-08-02 05:41] LABS: Alanine Aminotransfer (ALT/SGP 77 U/L (12-78); Albumin, Blood 1.7 g/dL (3.4-5.0); Albumin/Globulin Ratio 0.3 (0.8-1.8); Alk Phos 246 U/L (50-136); Anion Gap 7 mmol/L (6-16); Aspartate Aminotrans (AST/SGOT 45 U/L (12-37); Bilirubin, Total 1.1 mg/dL (0.1-1.0); Blood Urea Nitrogen 14 mg/dL (8-24); Bun/Creatinine Ratio 14.5 (12.0-20.0); CO2, Blood 26 mmol/L (21-32); Calcium, Blood 8.1 mg/dL (8.5-10.1); Chloride, Blood 103 mmol/L (98-108); Creatinine, Blood 0.97 mg/dL (0.60-1.20); Globulin, Blood 6.3 g/dL (2.2-4.0); Glomerular Filtration Rate >60 (60-); Glucose, Blood 132 mg/dL (70-99); Potassium, Blood 4.5 mmol/L (3.5-5.5); Sodium, Blood 136 mmol/L (136-145); Thyroid Stimulating Hormone 0.895 uIU/mL (0.360-4.800)
--- NOTE | 2021-08-02 06:55 | NUR ---
SHIFT SUMMARY - SEE PREVIOUS NOTE. PT WAS SLEEPING UPON ENTERING ROOM THIS AM FOR PO MED. PT AWAKENS, AND REPORTS HE IS WARM, SEVERAL BLANKETS REMOVED. PT REPORTS HE WOKE UP COUGHING, SATS WNL ON CONTINUOUS BIOX. PT REQUESTING TO HAVE THE OXYGEN REMOVED, EDUCATED ON IMPORTANCE OF LEAVING O2 IN PLACE. TURNED O2 DOWN TO 8L ON OXYMIZER - SATS WNL ON CONTINOUS BIOX. PT AGREEABLE TO KEEPING THE OXYGEN ON. PT NOT ANXIOUS THIS AM, WHEN HE FIRST ARRIVED TONIGHT. IV FLUIDS INFUSING TO LEFT AC IV SITE, CALL LIGHT WITHIN REACH. BED ALARM ON. PO FLUIDS AT BEDSIDE.
--- NOTE | 2021-08-02 16:13 | NUR ---
HEMOPTYSIS PT HAD EPISODE OF HEMOPTYSIS AND COUGHED UP ABOUT 5 ML OF BRIGHT RED BLOOD/SPUTUM. THIS WAS ACCOMPANIED BY RAPID O2 DESATURATION. HIGH FLOW NC TURNED TO 15 LITERS. PT SATS STILL IN THE 80'S SO HE WAS PUT ON A NON REBREATHER. PT'S O2 IN THE HIGH 90'S ON NON REBREATHER. DR. FOUNTAIN NOTIFIED AND RECEIVED ORDER FOR 2 VIEW CHEST X-RAY AND TO JOAN ARAUJO.
--- NOTE | 2021-08-02 19:13 | NUR ---
SHIFT SUMMARY PT A/O X3 BUT IS HIGHLY ANXIOUS. MEDICATED PER EMR FOR ANXIETY WITH NO EFFECT. PT ALSO SEEMS TO BE FAIRLY CONFUSED AND IS PARANOID WELL. AT THE BEGINNING OF THE SHIFT HE WAS ON OXIMIZER AT 8 LITERS AND HIS O2 REQUIREMENTS INCREASED TO 10 LITERS SINCE HE KEPT ON GETTING UP. PT THEN STARTED TO HAVE HEMOPTYSIS AND STARTED TO RAPIDLY DESAT. PT PUT ON A NON-REBREATHER AT 15 LITERS. PT'S ANXIETY MADE WORSE BY BEING ON A NON-REBREATHER. UNABLE TO GO DOWN TO X RAY SO A PORTABLE 1 VIEW CHEST X RAY WAS DONE. PT STILL UNABLE TO MAINTAIN O2 SATURATIONS >84% ON NON-REBREATHER. PT PLACED ON AIRVO AND NONREBREATHER. STILL VERY ANXIOUS. LUNG SOUNDS ARE VERY WET. REPORT GIVEN TO GAYLE PRETTY.
--- NOTE | 2021-08-02 20:05 | NUR ---
RECIEVED CALL FROM HEMOTOLOGY REGARDING DROP IN HGB FROM 7.3 TO 5.3. CHARGE NURSE NOTIFIED.
[2021-08-02 20:17] LABS: Hemoglobin 5.3 g/dL (13.5-17.5)
[2021-08-02 20:18] LABS: Hematocrit 18.9 % (37.0-53.0)
--- NOTE | 2021-08-02 20:30 | NUR ---
TIME OF PT IS RESTLESS AND IN RESPIRATORY DISTRESS, REQUESTING MORPHINE PER COMFORT CARE ORDERS. ADMINISTERED 5 MG ROXANOL PER EMAR AND STAYED AT THE BEDSIDE TO COMFORT PT AND HIS . PT SUDDENLY BECAME LETHARGIC, LEANED BACK INTO THE BED, AND APPEARED COMFORTABLE. AFTER A FEW MINUTES OF AGONAL BREATHING, A TIME OF WAS PRONOUNCED AT 2049. REASSURANCE PROVIDED TO PT'S HORTENSIA AND INFORMATION GIVEN ABOUT OPTIONS FOR HOMES. SPENT TIME AT THE BEDSIDE TO ANSWER QUESTIONS AND PROVIDE REASSURANCE.
--- NOTE | 2021-08-02 20:30 | NUR ---
MD CALL RECEIVED CALL FROM DR. FOUNTAIN WITH UPDATES AFTER HER DISCUSSION WITH DR. AZEVEDO. PT IS A POOR CANDIDATE FOR INTUBATION AND HAS A HEMOGLOBIN THAT HAS DROPPED TO 5.2 WITH HEMOPTYSIS AND RESPIRATORY DISTRESS. DISCUSSED PROGNOSIS WITH PATIENT AND (HORTENSIA) AT THE BEDSIDE AND THEY ARE AGREEABLE TO COMFORT CARE AT THIS TIME. RECEIVED ORDERS FOR COMFORT CARE AND PLAN IS TO RELIEVE AIR HUNGER. PT IS ON NON-REBREATHER MASK OVER AIRVO AND SATS ARE IN THE 80'S WITH RR IN THE 40'S. PT IS PALE, COOL TO THE TOUCH, CLAMMY, AND RESTLESS, ALERT AND COMUNICATIVE, ONE TO TWO WORDS AT A TIME DUE TO RESPIRATORY DISTRESS. SPOKE AT LENGTH WITH PATIENT AND TO ADDRESS GOALS OF CARE AND PLAN TO ACHIEVE COMFORT.
--- NOTE | 2021-08-02 20:40 | NUR ---
HANDED OFF CARE TO CHARGE NURSE JD Dawson DUE TO NEW ADMIT.
== END 2021-08-03 01:10 | DRG 180 ==
LOC: ER 21:24 → SURS 08-02 01:13 → PCU 08-02 19:19
PROVIDERS: Family Medicine; Internal Medicine; Physician Assistant; Student in an Organized Health Care Education/Training Program; ADMIT Internal Medicine
DX: C34.92 Malignant neoplasm of unspecified part of left bronchus or lung (principal); J18.9 Pneumonia, unspecified organism; J96.21 Acute and chronic respiratory failure with hypoxia; R04.89 Hemorrhage from other sites in respiratory passages; C34.91 Malignant neoplasm of unspecified part of right bronchus or lung; Z51.5 Encounter for palliative care; Z66 Do not resuscitate; I48.91 Unspecified atrial fibrillation; D11.9 Benign neoplasm of major salivary gland, unspecified; F41.9 Anxiety disorder, unspecified; E78.5 Hyperlipidemia, unspecified; Z86.711 Personal history of pulmonary embolism; Z90.49 Acquired absence of other specified parts of digestive tract; Z87.891 Personal history of nicotine dependence; Z88.8 Allergy status to other drugs, medicaments and biological substances; Z79.899 Other long term (current) drug therapy; Z20.822 Contact with and (suspected) exposure to COVID-19; G47.33 Obstructive sleep apnea (adult) (pediatric)
CPT/HCPCS: 36415; 71045; 80053; 81001; 83605; 84443; 85014; 85018; 85025; 87040; 87086; 93005; 93010; 93306; 94762; 96361; 96365; 96375; 99285-25; A9270; C9113; J0692; J0696; J1630; J2543; J2930; J3370; J7030; J7050; P9046; U0004